=== PATIENT | male | born 1945 | race Caucasian/White ===

== ENCOUNTER → 2017-02-10 | Outpatient (CLI) | payer OTHER ==
[2014-07-19 11:20] VITALS: BP 125/65
== END ==
LOC: RAD 14:19
PROVIDERS: ATTEND Internal Medicine Cardiovascular Disease
DX: R06.02 Shortness of breath (principal)
CPT/HCPCS: 93306

== ENCOUNTER → 2017-04-28 | Outpatient (CLI) | payer OTHER ==
[2014-07-19 11:20] VITALS: BP 125/65
[2017-04-28 09:23] LABS: CREATININE 2.11 mg/dL (0.70-1.30)
--- NOTE | 2017-04-28 10:37 | CT ---
CT NECK WITHOUT IV CONTRAST CLINICAL INDICATION: Localize swelling. Neither location nor laterality indicated by ordering provid er. TECHNIQUE: Multiple-row detector helical CT examination of the neck per standard departmental bam col. Dose reduction techniques including Automated Exposure Control (AEC) and adjustment of mA and k V were utlized. COMPARISON: None. FINDINGS: It should be noted that evaluation of the neck for vascular and soft tissue lesions is extremely sub optimal in the absence of intravenous contrast. The aerodigestive structures are within normal limits. Specifically, the nasal cavity, nasopharynx, oral cavity, oropharynx, hypopharynx, larynx, and visualized trachea and esophagus demonstrate no m asses or abnormal enhancement. No pathologically enlarged, necrotic, or otherwise abnormal lymph nodes. Small subcutaneous lesion in the left cheek on series 3, image 9 may represent a sebaceous cyst. The parotid and submandibular glands appear within normal limits. The thyroid gland is normal in siz e without focal abnormality. Evaluation of the visualized portions of brain parenchyma and orbits demonstrates no abnormality. Th e visualized paranasal sinuses are predominantly clear. The tympanomastoid cavities are unopacified. Limited evaluation of the lung apices demonstrates no abnormality. The visualized osseous structures are within normal limits. IMPRESSION: 1. Small subcutaneous nodule in the left cheek. Correlate with physical examination. This may repres ent a sebaceous cyst. 2. Otherwise no evidence of abnormal mass or fluid collection on this significantly limited, noncont rast examination. Reported By:
== END ==
LOC: RAD 08:37
DX: R22.1 Localized swelling, mass and lump, neck (principal)
CPT/HCPCS: 36415; 70490; 82565; 84520

== ENCOUNTER 2017-10-21 20:09 | Inpatient (IN) | payer OTHER ==
--- NOTE | 2017-10-21 20:29 | DR.GENAD ---
HPI - PCP Primary Care Physician: Hatch - Complaint/Symptoms Chief Complaint Doctors Comments: Patient presented with complaint of chest pain for one day. He has taken NTG SL with relief pain past two days. The pain is right chest non radiating. He has a history of Bypass surgery. PMH - PMH Past Medical History: Hypertension, COPD Past Surgical History: Yes Surgical History: - Family History Family Medical History: Diabetes Mellitus, Cancer, Hypertension - Social History Do you use any recreational Drugs:: No ROS - Review of Systems Constitutional: Malaise Eyes: No Symptoms Reported ENTM: No Symptoms Reported Respiratoy: No Symptoms Reported Cardiovascular: No Symptoms Reported Gastrointestinal/Abdominal: No Symptoms Reported Genitourinary: No Symptoms Reported Neurological: No Symptoms Reported Musculoskeletal: No Symptoms Reported Integumentary: No Symptoms Reported Hematologic/Lymphatic: No Symptoms Reported Endocrine: No Symptoms Reported Psychiatric: No Symptoms Reported All Other Systems: Reviewed and Negative PE - Vital Signs Vitals: Temperature 98.6 F Pulse Rate 84 Respiratory Rate 28 Blood Pressure [Left Arm] 143/99 Blood Pressure 125/65 O2 Sat by Pulse Oximetry 84 - General Limitations: No Limitations General Appearance: Alert - Head Head Exam: Normal Inspection, Atraumatic - Eyes Eye exam: Normal Appearance, PERRL, EOMI - ENT ENT Exam: Normal Exam External Ear Exam: Normal External Inspection TM/Canal Exam: Bilateral Normal Nose Exam: Normal Nose Exam Mouth Exam: Normal Inspection Throat Exam: Normal Inspection - Neck Neck Exam: Normal Inspection, Full ROM - Chest Chest Inspection: Normal Inspection - Respiratory Respiratory Exam: Normal Lung Sounds Bilat Respiratory Exam: Bilateral Clear to Auscultation - Cardiovascular Cardiovascular Exam: Regular Rate - Abdominal Exam Abdominal Exam: Dimnished Bowel Sounds Abdominal Tenderness: negative: RUQ, RLQ, LUQ, LLQ, Epigastrium, Suprapubic, Diffuse, Mild, Moderate, Severe, Other - Extremities Extremities Exam: Edema (4+pitting according to family member), Joint Swelling - Back Back Exam: Normal Inspection - Neurologic Neurological Exam: Alert, Oriented X3, CN II-XII Intact - Psychiatric Psychiatric Exam: Normal Affect, Normal Mood - Skin Skin Exam: Warm, Dry, Intact Course - Reevaluation 1st: Unchanged - Consultation Called: 22:50 (Dr Galvan agreed to admit for further treatment) ROR - Labs Reviewed Result Diagrams: 10/21/17 20:45 10/21/17 20:45 Laboratory: WBC 10.7 X10^3/uL (3.6-10.0) H 10/21/17 20:45 RBC 3.53 X10^6/uL (4.7-6.0) L 10/21/17 20:45 Hgb 8.8 g/dL (13.5-18.0) L 10/21/17 20:45 Hct 28.1 % (42.0-54.0) L 10/21/17 20:45 MCV 79.6 fL (80.0-100.0) L 10/21/17 20:45 MCH 25.0 pg (27.0-34.0) L 10/21/17 20:45 MCHC 31.4 g/dL (33.0-35.0) L 10/21/17 20:45 RDW 19.0 % (11.6-16.5) H 10/21/17 20:45 Plt Count 222 X10^3/uL (150.0-450.0) 10/21/17 20:45 Plt Count Comment Adequate (ADEQUATE) 10/21/17 20:45 MPV 8.7 fL (7.4-11.0) 10/21/17 20:45 Neut % 76.3 % (42.0-75.0) H 10/21/17 20:45 Lymph % 11.0 % (21.0-51.0) L 10/21/17 20:45 [place] % 10.1 % (0.0-13.0) 10/21/17 20:45 Eos % 1.5 % (0.9-2.9) 10/21/17 20:45 Baso % 1.1 % (0.2-1.0) H 10/21/17 20:45 Neut # 8.2 x10^3/uL (2.2-4.8) H 10/21/17 20:45 Lymph # 1.2 X10^3/uL (1.3-2.9) L 10/21/17 20:45 [place] # 1.1 x10^3/uL (0.3-0.8) H 10/21/17 20:45 Eos # 0.2 x10^3/uL (0.0-0.2) 10/21/17 20:45 Baso # 0.1 X10^3/uL (0.0-0.1) 10/21/17 20:45 Absolute Nucleated RBC 0.1 /100WBC 10/21/17 20:45 Plt Morphology Comment Normal (NORMAL) 10/21/17 20:45 RBC Morphology Abnormal (NORMAL) 10/21/17 20:45 Anisocytosis Slight A 10/21/17 20:45 Microcytosis Slight A 10/21/17 20:45 INR Target Range - 10/21/17 20:45 INR 1.08 (0.8-1.3) 10/21/17 20:45 PTT 36.2 SECONDS (22.9-36.5) 10/21/17 20:45 PTT Comment - 10/21/17 20:45 Sodium 141 mmol/L (136-145) 10/21/17 20:45 Corrected Sodium 143 mmol/L (136-145) 10/21/17 20:45 Potassium 4.8 mmol/L (3.5-5.1) 10/21/17 20:45 Chloride 102 mmol/L (98-107) 10/21/17 20:45 Carbon Dioxide 31.0 mmol/L (21-32) 10/21/17 20:45 BUN 50 mg/dL (7-18) H 10/21/17 20:45 Creatinine 2.75 mg/dL (0.70-1.30) H 10/21/17 20:45 Est GFR (MDRD) Af Amer 29 (>60) L 10/21/17 20:45 Est GFR (MDRD) Non-Af 24 (>60) L 10/21/17 20:45 Glucose 172 mg/dL (65-99) H 10/21/17 20:45 Calcium 8.3 mg/dL (8.5-10.1) L 10/21/17 20:45 Corrected Calcium 8.9 mg/dL (8.5-10.1) 10/21/17 20:45 Magnesium 2.0 mg/dL (1.7-2.9) 10/21/17 20:45 Total Bilirubin 0.30 mg/dL (0.2-1.0) 10/21/17 20:45 AST 11 Units/L (15-37) L 10/21/17 20:45 ALT 14 Units/L (12-78) 10/21/17 20:45 Alkaline Phosphatase 97 Units/L (46-116) 10/21/17 20:45 Creatine Kinase 172 Units/L (39-308) 10/21/17 20:45 CK-MB (CK-2) 1.6 ng/mL (0-4.0) 10/21/17 20:45 CK/CKMB % Calc 0.9 % (<4) 10/21/17 20:45 Troponin I < 0.02 ng/mL (0-1.5) 10/21/17 20:45 B-Natriuretic Peptide 153 pg/mL (0-79) H 10/21/17 20:45 Total Protein 6.7 g/dL (6.4-8.2) 10/21/17 20:45 Albumin 3.2 g/dL (3.4-5.0) L 10/21/17 20:45 Globulin 3.5 g/dL (2.5-4.5) 10/21/17 20:45 Albumin/Globulin Ratio 0.9 Ratio (1.1-2.1) L 10/21/17 20:45 - XRAY XRAY Interpreted by: Radiologist (Chest: Cardiomegaly with prior CABG with pulmonary vascular congestion and suspected mild intersitial edema likely in the setting of CHF) - Diagnosis Discharge Problem: Prerenal azotemia, Pulmonary vascular congestion Chest pain Qualifiers: Chest pain type: unspecified Qualified Code(s): R07.9 - Chest pain, unspecified - Discharge Plan Condition: Stable - Follow ups/Referrals Follow ups/Referrals: ANA HATCH [Primary Care Provider] - 3 days - Instructions
[2017-10-21] MEDS ORDERED: NS 1000 ML 1,000 ML IV SCH (21:00)
[2017-10-21 21:03] LABS: BASOPHILS # (AUTO) 0.1 X10^3/uL (0.0-0.1); BASOPHILS % (AUTO) 1.1 % (0.2-1.0); EOSINOPHILS # (AUTO) 0.2 x10^3/uL (0.0-0.2); EOSINOPHILS % (AUTO) 1.5 % (0.9-2.9); HEMATOCRIT 28.1 % (42.0-54.0); HEMOGLOBIN 8.8 g/dL (13.5-18.0); LYMPHOCYTES # (AUTO) 1.2 X10^3/uL (1.3-2.9); MEAN CORPUSCULAR HGB CONC 31.4 g/dL (33.0-35.0); MEAN CORPUSCULAR VOLUME 79.6 fL (80.0-100.0); MEAN PLATELET VOLUME 8.7 fL (7.4-11.0); MONOCYTES # (AUTO) 1.1 x10^3/uL (0.3-0.8); MONOCYTES % (AUTO) 10.1 % (0.0-13.0); NEUTROPHILS # (AUTO) 8.2 x10^3/uL (2.2-4.8); NEUTROPHILS % (AUTO) 76.3 % (42.0-75.0); PLATELET COUNT 222 X10^3/uL (150.0-450.0); RED BLOOD COUNT 3.53 X10^6/uL (4.7-6.0); WHITE BLOOD COUNT 10.7 X10^3/uL (3.6-10.0)
[2017-10-21 21:17] LABS: BLOOD UREA NITROGEN 50 mg/dL (7-18); CALCIUM 8.3 mg/dL (8.5-10.1); CHLORIDE 102 mmol/L (98-107); COR NA(FOR HYPERGLY) 143 mmol/L (136-145); CREATININE 2.75 mg/dL (0.70-1.30); SODIUM 141 mmol/L (136-145); TROPONIN I < 0.02 ng/mL (0-1.5); eGFR BLACK RACES 29 (>60); eGFR NON BLACK RACES 24 (>60)
[2017-10-21 21:20] LABS: B-TYPE NATRIURETIC PEPTIDE 153 pg/mL (0-79)
[2017-10-21 21:21] LABS: ALANINE AMINOTRANSFERASE 14 Units/L (12-78); ALBUMIN 3.2 g/dL (3.4-5.0); ALKALINE PHOSPHATASE 97 Units/L (46-116); ASPARTATE AMINO TRANSFERASE 11 Units/L (15-37); CKMB % 0.9 % (<4); COR CA(FOR HYPOALB) 8.9 mg/dL (8.5-10.1); CREATINE KINASE 172 Units/L (39-308); CREATINE KINASE MB 1.6 ng/mL (0-4.0); TOTAL PROTEIN 6.7 g/dL (6.4-8.2)
[2017-10-21 21:24] LABS: ANISOCYTOSIS SLIGHT; MICROCYTOSIS SLIGHT; PLATELET MORPHOLOGY COMMENT NORMAL (NORMAL)
--- NOTE | 2017-10-21 21:39 | RAD ---
AP Chest Indication: Chest pain Comparison: 10/11/2012 Findings: The trachea is midline. The cardiac silhouette is enlarged. Interval CABG changes are noted. There i s chronic pulmonary vascular congestion however there is also increased interstitial opacities in catherine tral peribronchial thickening suspicious for superimposed pulmonary interstitial edema. Questionable small left-sided pleural effusion. No pneumothorax. No acute osseous abnormality. The bony thorax is unremarkable. IMPRESSION: 1. Cardiomegaly with prior CABG with pulmonary vascular congestion and suspected mild interstitial ed truong likely in the setting of CHF/volume overload. There is also likely a small left-sided pleural eff usion. Reported By:
[2017-10-22] MEDS: NS 1000 ML 1,000 ML IV SCH ×2 (00:24→10:31)
[2017-10-22 03:03] LABS: BILIRUBIN,URINE NEGATIVE (NEGATIVE); BLOOD/HEMOGLOBIN,URINE NEGATIVE (NEGATIVE); GLUCOSE, URINE NEGATIVE (NEGATIVE); KETONES,URINE NEGATIVE (NEGATIVE); LEUKOCYTE ESTERASE ,URINE NEGATIVE (NEGATIVE); NITRITES,URINE NEGATIVE (NEGATIVE); PROTEIN,URINE NEGATIVE (NEGATIVE); UROBILINOGEN,URINE NORMAL (NORMAL)
[2017-10-22 03:31] LABS: CKMB % 0.9 % (<4); CREATINE KINASE 195 Units/L (39-308); CREATINE KINASE MB 1.8 ng/mL (0-4.0); TROPONIN I < 0.02 ng/mL (0-1.5)
[2017-10-22 03:49] LABS: APPEARANCE,URINE CLEAR (CLEAR); BACTERIA,URINE NEGATIVE /HPF (NEGATIVE); COLOR,URINE YELLOW (YELLOW); RBC,URINE 0-3 /HPF (NEGATIVE); SQUAMOUS EPITHELIAL CELL,UR FEW /HPF (NEGATIVE)
[2017-10-22] MEDS ORDERED: COLACE CAP 100 MG PO SCH (04:00)
[2017-10-22 04:29] VITALS: BMI 45.3
[2017-10-22 06:38] LABS: BASOPHILS % (AUTO) 0.4 % (0.2-1.0); EOSINOPHILS # (AUTO) 0.2 x10^3/uL (0.0-0.2); EOSINOPHILS % (AUTO) 1.7 % (0.9-2.9); LYMPHOCYTES # (AUTO) 1.3 X10^3/uL (1.3-2.9); LYMPHOCYTES % (AUTO) 13.9 % (21.0-51.0); MEAN CORPUSCULAR HEMOGLOBIN 25.2 pg (27.0-34.0); MEAN CORPUSCULAR VOLUME 78.9 fL (80.0-100.0); MEAN PLATELET VOLUME 8.6 fL (7.4-11.0); MONOCYTES # (AUTO) 1.1 x10^3/uL (0.3-0.8); MONOCYTES % (AUTO) 11.6 % (0.0-13.0); NEUTROPHILS # (AUTO) 6.7 x10^3/uL (2.2-4.8); NEUTROPHILS % (AUTO) 72.4 % (42.0-75.0); PLATELET COUNT 190 X10^3/uL (150.0-450.0); RED BLOOD COUNT 3.17 X10^6/uL (4.7-6.0); RED CELL DISTRIBUTION WIDTH 18.7 % (11.6-16.5); WHITE BLOOD COUNT 9.3 X10^3/uL (3.6-10.0)
[2017-10-22 06:45] LABS: ALBUMIN 2.8 g/dL (3.4-5.0); CALCIUM 8.1 mg/dL (8.5-10.1); CARBON DIOXIDE 35.8 mmol/L (21-32); COR CA(FOR HYPOALB) 9.1 mg/dL (8.5-10.1); CREATININE 2.51 mg/dL (0.70-1.30); TOTAL PROTEIN 6.1 g/dL (6.4-8.2)
[2017-10-22 06:59] LABS: PLATELET MORPHOLOGY COMMENT NORMAL (NORMAL)
[2017-10-22 07:00] LABS: HYPOCHROMASIA SLIGHT; MICROCYTOSIS SLIGHT
--- NOTE | 2017-10-22 07:33 | RAD ---
Examination: Portable AP chest History: Chest pain Comparison 10/21/2017 Findings: Continued moderate cardiomegaly with findings of sternotomy. Mild central vascular congesti on. No definite pulmonary edema, large pneumothorax or localized consolidation. Impression: No significant change identified since 1 day earlier. Reported By:
[2017-10-22] MEDS ORDERED: MILK OF MAGNESIA PO SCH (09:00)
[2017-10-22 09:28] LABS: CKMB % 0.9 % (<4); CREATINE KINASE 177 Units/L (39-308); CREATINE KINASE MB 1.6 ng/mL (0-4.0); TROPONIN I < 0.02 ng/mL (0-1.5)
[2017-10-22] MEDS ORDERED: CLEOCIN 600 MG IV PREMIX 600 MG/50 ML BAG IV ONE (18:04)
[2017-10-22 18:21] VITALS: BP 138/86
== END 2017-10-22 18:15 | disposition short-term general hospital (02) | DRG 313 ==
LOC: ER 20:09 → MED/SURG 23:09
PROVIDERS: ADMIT Internal Medicine; ATTEND Obstetrics & Gynecology Obstetrics
DX: R07.89 Other chest pain (principal); R78.79 Finding of abnormal level of heavy metals in blood; L03.115 Cellulitis of right lower limb; I10 Essential (primary) hypertension; R94.31 Abnormal electrocardiogram [ECG] [EKG]; E11.65 Type 2 diabetes mellitus with hyperglycemia; I50.9 Heart failure, unspecified; N18.9 Chronic kidney disease, unspecified; I25.10 Atherosclerotic heart disease of native coronary artery without angina pectoris; W54.0XXA Bitten by dog, initial encounter; Y92.89 Other specified places as the place of occurrence of the external cause
CPT/HCPCS: 36415; 71045; 80053; 81001; 82550; 82553; 83735; 83880; 84484; 85025; 85610; 85730; 93005; 93010; 94760; 96365; 96367; 99284; A4216; A4222; J0077

== ENCOUNTER 2017-11-01 15:48 | Inpatient (IN) | payer OTHER ==
[2017-11-01] MEDS ORDERED: NS 1000 ML 1,000 ML IV ONE (16:08)
--- NOTE | 2017-11-01 16:27 | CT ---
CT of the abdomen and pelvis without contrast. Indication: Fall with abdominal pain Findings: Images of the lower chest demonstrate pleural-based nodular opacities within the left lower lobe. The remaining lungs are clear. The bones windows demonstrate multilevel discogenic degenerativ e disease without aggressive lesion. There is an infrarenal abdominal aortic aneurysm measuring 3.6 x 3.7 cm on image 45 of series 8. This is associated with mild atherosclerotic disease. The subcutaneo us tissues demonstrate an anterior right abdominal subcutaneous fat 6.8 cm hematoma. The right latera l abdominal wall is not visualized as it is touching the gantry. Abdomen: Given the limitations of a noncontrast study the liver, gallbladder, adrenal glands, spleen, pancreas and right kidney are unremarkable. There is atrophy of the left kidney. No hydronephrosis i s seen. There is mesenteric stranding. Pelvis: The prostate and urinary bladder are unremarkable. The bowel shows no abnormality except for scattered diverticuli. There is no free pelvic fluid or adenopathy. Conclusion: 1. Right anterior subcutaneous abdominal wall hematoma without intra-abdominal trauma. 2. Small infrarenal abdominal aortic aneurysm. 3. Left posterior lower lobe pleural-based nodules likely represents round atelectasis. Reported By:
[2017-11-01] MEDS ORDERED: NS 1000 ML 1,000 ML ONE (16:30)
[2017-11-01 16:31] LABS: BASOPHILS # (AUTO) 0.1 X10^3/uL (0.0-0.1); BASOPHILS % (AUTO) 1.2 % (0.2-1.0); EOSINOPHILS # (AUTO) 0.2 x10^3/uL (0.0-0.2); EOSINOPHILS % (AUTO) 2.4 % (0.9-2.9); HEMATOCRIT 26.5 % (42.0-54.0); HEMOGLOBIN 8.4 g/dL (13.5-18.0); LYMPHOCYTES # (AUTO) 1.3 X10^3/uL (1.3-2.9); LYMPHOCYTES % (AUTO) 14.1 % (21.0-51.0); MEAN CORPUSCULAR HGB CONC 31.7 g/dL (33.0-35.0); MEAN PLATELET VOLUME 8.6 fL (7.4-11.0); MONOCYTES # (AUTO) 0.9 x10^3/uL (0.3-0.8); MONOCYTES % (AUTO) 10.2 % (0.0-13.0); NEUTROPHILS # (AUTO) 6.7 x10^3/uL (2.2-4.8); NEUTROPHILS % (AUTO) 72.1 % (42.0-75.0); PLATELET COUNT 208 X10^3/uL (150.0-450.0); RED BLOOD COUNT 3.35 X10^6/uL (4.7-6.0); RED CELL DISTRIBUTION WIDTH 19.2 % (11.6-16.5); WHITE BLOOD COUNT 9.3 X10^3/uL (3.6-10.0)
--- NOTE | 2017-11-01 16:32 | DR.ABDMALE ---
HPI - Time seen Time seen: 16:00 - PCP Primary Care Physician: HATCH - Complaint Chief Complaint Doctors Comments: Patient fell while getting out of house sustained a 8cm superficial laceration of the RLQ of abdomen. He was discharged for [facility] on last week s/p treatment of pleural effusion of chest and abdomen. He sustained a laceration of the left lower extremity when he fell today. Chief Complaint:: 6-8 CM LACERATION TO LEFT LOWER LEG S/P FALL. PT. STATES HIS PORCH STEPS BROKE AND HE FELL ONTO THE DIRT. LARGE HEMATOMA AND ABRASION NOTED TO RIGHT SIDE OF ABDOMEN. - Source History provided by:: PT - Mode of arrival Mode of Arrival: EMS - Timing Onset of Chief Complaint: 11/01/17 PMH - PMH Past Medical History: Yes Past Medical History: CHF, COPD, Coronary Artery Disease, Diabetes, Hypertension Past Surgical History: Yes Surgical History: CABG/Valve Surgery, Other Past Surgical History Comment: HERNIA REPAIR - Family History History of Family Medical Conditions: Yes Family Medical History: Diabetes Mellitus, Cancer, Hypertension - Social History Does patient currently use any type of tobacco product: No Have you used tobacco products in the last 12 months: No Type of Tobacco Use: None Does any household member use tobacco: No Alcohol Use: None Do you use any recreational Drugs:: No Lives With: Spouse Lives Where: Home - infectious screening In the last 2 months have you had wt loss of >10#?: NO Have you had fever, night sweats or hemotysis?: No Have you traveled outside the country in the last 6 months?: No Isolation: Standard ROS - Review of Systems Constitutional: No Symptoms Reported Eyes: No Symptoms Reported ENTM: No Symptoms Reported Respiratoy: No Symptoms Reported Cardiovascular: No Symptoms Reported Gastrointestinal/Abdominal: No Symptoms Reported Genitourinary: No Symptoms Reported Neurological: No Symptoms Reported Musculoskeletal: No Symptoms Reported Integumentary: No Symptoms Reported Hematologic/Lymphatic: No Symptoms Reported Endocrine: No Symptoms Reported Psychiatric: No Symptoms Reported All Other Systems: Reviewed and Negative PE - Vital Signs Vital Signs: Temp Pulse Pulse Resp BP BP BP 11/01/17 18:45 79 20 142/63 11/01/17 18:15 80 20 92/55 11/01/17 18:00 76 20 116/57 11/01/17 17:30 79 21 117/55 02/06/18 17:00 74 20 124/61 02/06/18 16:45 74 20 106/58 11/01/17 16:30 77 20 93/51 11/01/17 16:23 78 20 95/55 11/01/17 15:51 97.6 F 88 20 93/54 10/22/17 16:00 138/86 138/86 10/11/12 12:00 143/99 Pulse Ox 11/01/17 18:45 100 11/01/17 18:15 100 11/01/17 18:00 100 11/01/17 17:30 97 11/01/17 17:00 100 11/01/17 16:45 100 11/01/17 16:30 98 11/01/17 16:23 100 11/01/17 15:51 96 10/22/17 16:00 10/11/12 12:00 - General Limitations: No Limitations General Appearance: Alert - Head Head Exam: Normal Inspection, Atraumatic - Eyes Eye exam: Normal Appearance, PERRL, EOMI - ENT ENT Exam: Normal Exam - Neck Neck Exam: Normal Inspection, Full ROM - Chest Chest Inspection: Normal Inspection - Respiratory Respiratory Exam: Normal Lung Sounds Bilat Respiratory Exam: Bilateral Clear to Auscultation - Cardiovascular Cardiovascular Exam: Regular Rate - Abdominal Exam Abdominal Exam: Normal Inspection Abdominal Tenderness: RLQ (a 8cm superficial abrasion with ecchymosis and protuberance at site.), Other - Rectal Rectal Exam: Deferred - Back Back Exam: Normal Inspection - Extremeties Extremities Exam: Other (A large laceration of the left lower extremity anteriorally (9x8cm)) - Exam: Male: Deferred - Neurologic Neurological Exam: Alert, Oriented X3, CN II-XII Intact - Psychiatric Psychiatric Exam: Normal Affect, Normal Mood - Skin Skin Exam: Warm, Dry, Intact, Other (A 6-8cm superficial laceration of RLQQ abdomen) Course - Reevaluation 1st: Improved - Consultation Called: 16:20 (Dr Barajas agreed to admit for further treatment and evaluation) ROR - Labs Reviewed Result Diagrams: 11/01/17 16:19 11/01/17 16:19 Laboratory: WBC 9.3 X10^3/uL (3.6-10.0) 11/01/17 16:19 RBC 3.35 X10^6/uL (4.7-6.0) L 11/01/17 16:19 Hgb 8.4 g/dL (13.5-18.0) L 11/01/17 16:19 Hct 26.5 % (42.0-54.0) L 11/01/17 16:19 MCV 79.0 fL (80.0-100.0) L 11/01/17 16:19 MCH 25.0 pg (27.0-34.0) L 11/01/17 16:19 MCHC 31.7 g/dL (33.0-35.0) L 11/01/17 16:19 RDW 19.2 % (11.6-16.5) H 11/01/17 16:19 Plt Count 208 X10^3/uL (150.0-450.0) 11/01/17 16:19 Plt Count Comment Adequate (ADEQUATE) 11/01/17 16:19 MPV 8.6 fL (7.4-11.0) 11/01/17 16:19 Neut % 72.1 % (42.0-75.0) 11/01/17 16:19 Lymph % 14.1 % (21.0-51.0) L 11/01/17 16:19 [place] % 10.2 % (0.0-13.0) 11/01/17 16:19 Eos % 2.4 % (0.9-2.9) 11/01/17 16:19 Baso % 1.2 % (0.2-1.0) H 11/01/17 16:19 Neut # 6.7 x10^3/uL (2.2-4.8) H 11/01/17 16:19 Lymph # 1.3 X10^3/uL (1.3-2.9) 11/01/17 16:19 [place] # 0.9 x10^3/uL (0.3-0.8) H 11/01/17 16:19 Eos # 0.2 x10^3/uL (0.0-0.2) 11/01/17 16:19 Baso # 0.1 X10^3/uL (0.0-0.1) 11/01/17 16:19 Absolute Nucleated RBC 0.0 /100WBC 11/01/17 16:19 Plt Morphology Comment Normal (NORMAL) 11/01/17 16:19 RBC Morphology Abnormal (NORMAL) 11/01/17 16:19 Hypochromasia Slight A 11/01/17 16:19 Anisocytosis Slight A 11/01/17 16:19 Microcytosis Slight A 11/01/17 16:19 INR Target Range - 11/01/17 16:19 INR 1.12 (0.8-1.3) 11/01/17 16:19 PTT 36.0 SECONDS (22.9-36.5) 11/01/17 16:19 PTT Comment - 11/01/17 16:19 Sodium 142 mmol/L (136-145) 11/01/17 16:19 Corrected Sodium 143 mmol/L (136-145) 11/01/17 16:19 Potassium 5.1 mmol/L (3.5-5.1) 11/01/17 16:19 Chloride 106 mmol/L (98-107) 11/01/17 16:19 Carbon Dioxide 34.0 mmol/L (21-32) H 11/01/17 16:19 BUN 36 mg/dL (7-18) H 11/01/17 16:19 Creatinine 2.33 mg/dL (0.70-1.30) H 11/01/17 16:19 Est GFR (MDRD) Af Amer 36 (>60) L 11/01/17 16:19 Est GFR (MDRD) Non-Af 29 (>60) L 11/01/17 16:19 Glucose 149 mg/dL (65-99) H 11/01/17 16:19 Calcium 7.9 mg/dL (8.5-10.1) L 11/01/17 16:19 Corrected Calcium 8.8 mg/dL (8.5-10.1) 11/01/17 16:19 Total Bilirubin 0.20 mg/dL (0.2-1.0) 11/01/17 16:19 AST 10 Units/L (15-37) L 11/01/17 16:19 ALT 14 Units/L (12-78) 11/01/17 16:19 Alkaline Phosphatase 90 Units/L (46-116) 11/01/17 16:19 Total Protein 6.0 g/dL (6.4-8.2) L 11/01/17 16:19 Albumin 2.9 g/dL (3.4-5.0) L 11/01/17 16:19 Globulin 3.1 g/dL (2.5-4.5) 11/01/17 16:19 Albumin/Globulin Ratio 0.9 Ratio (1.1-2.1) L 11/01/17 16:19 - XRAY XRAY Interpreted by: Radiologist (CT Abdom/pel w/o: Fingings: the lower chest demonstrate pleural based nodular opacities within the left lower lobe. The remaining lungs are clear. The bones windows demonstrate multilevel discogenic degenerative disease without aggressive lesion. There is an infrarenal abdominal aortic aneurysm measuring 3.6x3.7 cm. This is associated withmild atherosclerotic disease. The subcutaneous tissues demonstrate an anterior right abdominal subcutaneous fat 6.8cm hematoma. The right lateral abdominal wall is not visualized as it is touching the gantry. Abdomen: given the limitations of a noncontrast study the liver, gallbladder, adrenal glands,spleen ,pancreas and right kidney are unreamarkable. There is atrophy of the left kidney. No hydronephrosis is seen. There is mesenteric stranding. .Conclusion : Right anterior subcutaneous abdominal walll hematoma without intra abdominal trauma. Small infrarenal abdominal aortic aneurysm. Left posterior lower lobe pleural based nodules likely represents round atelectasis.) Procedures - Laceration/Wound Repair Left Leg Wound Length (cm): 8 Wound's Depth, Shape: Into muscle Wound Explored: clean Anesthesia: 1% Lidocaine w/ Epi (20) Wound Debrided: minimal Wound Repaired With: sutures Suture Size/Type: 3:0, Ethilion (16) - Diagnosis Discharge Problem: Abdominal hematoma Leg laceration Qualifiers: Encounter type: initial encounter Laterality: left Qualified Code(s): S81.812A - Laceration without foreign body, left lower leg, initial encounter - Discharge Plan Condition: Stable - Follow ups/Referrals Follow ups/Referrals: ANA HATCH [Primary Care Provider] - 3 days - Instructions
[2017-11-01 16:41] LABS: ALBUMIN 2.9 g/dL (3.4-5.0); CALCIUM 7.9 mg/dL (8.5-10.1); COR CA(FOR HYPOALB) 8.8 mg/dL (8.5-10.1); CREATININE 2.33 mg/dL (0.70-1.30)
[2017-11-01 16:47] LABS: ANISOCYTOSIS SLIGHT; HYPOCHROMASIA SLIGHT; MICROCYTOSIS SLIGHT; PLATELET MORPHOLOGY COMMENT NORMAL (NORMAL)
[2017-11-01] MEDS ORDERED: XYLOCAINE 1% and EPINEPHRINE 1:100,000 ONE ×2 (18:02→18:26)
[2017-11-01] MEDS ORDERED: BACITRACIN ZINC ONE (18:50)
[2017-11-01] MEDS ORDERED: ZOFRAN INJ 4 MG VIAL IVP PRN (19:08)
[2017-11-01] MEDS: NS 1000 ML 1,000 ML IV SCH (21:00)
[2017-11-02 06:19] LABS: BASOPHILS # (AUTO) 0.1 X10^3/uL (0.0-0.1); BASOPHILS % (AUTO) 0.7 % (0.2-1.0); EOSINOPHILS # (AUTO) 0.2 x10^3/uL (0.0-0.2); EOSINOPHILS % (AUTO) 2.1 % (0.9-2.9); HEMATOCRIT 24.2 % (42.0-54.0); HEMOGLOBIN 7.7 g/dL (13.5-18.0); LYMPHOCYTES # (AUTO) 1.1 X10^3/uL (1.3-2.9); LYMPHOCYTES % (AUTO) 13.3 % (21.0-51.0); MEAN CORPUSCULAR HEMOGLOBIN 25.1 pg (27.0-34.0); MEAN CORPUSCULAR HGB CONC 31.7 g/dL (33.0-35.0); MEAN PLATELET VOLUME 8.8 fL (7.4-11.0); MONOCYTES # (AUTO) 1.2 x10^3/uL (0.3-0.8); MONOCYTES % (AUTO) 14.1 % (0.0-13.0); NEUTROPHILS # (AUTO) 5.9 x10^3/uL (2.2-4.8); NEUTROPHILS % (AUTO) 69.8 % (42.0-75.0); PLATELET COUNT 178 X10^3/uL (150.0-450.0); RED BLOOD COUNT 3.06 X10^6/uL (4.7-6.0); RED CELL DISTRIBUTION WIDTH 19.3 % (11.6-16.5); WHITE BLOOD COUNT 8.4 X10^3/uL (3.6-10.0)
[2017-11-02 06:30] LABS: HYPOCHROMASIA 1+; PLATELET MORPHOLOGY COMMENT NORMAL (NORMAL)
[2017-11-02 06:34] LABS: ALBUMIN 2.5 g/dL (3.4-5.0); CALCIUM 7.7 mg/dL (8.5-10.1); CARBON DIOXIDE 32.3 mmol/L (21-32); COR CA(FOR HYPOALB) 8.9 mg/dL (8.5-10.1); CREATININE 1.93 mg/dL (0.70-1.30); TOTAL PROTEIN 5.4 g/dL (6.4-8.2)
--- NOTE | 2017-11-02 07:32 | RAD ---
History: Fall, pain Study: Portable chest Findings: AP upright chest labeled 6:45 a.m. shows the cardiac silhouette to be enlarged. Postop lorenzo ges of CABG are noted. The pulmonary vasculature is mildly congested. No focal consolidation is evident. No acute osseous ab normality is seen as visualized. Impression: Cardiomegaly with mild vascular congestion. No consolidation is seen. Reported By:
[2017-11-02] MEDS: NS 1000 ML 1,000 ML IV SCH (08:39)
[2017-11-02] MEDS ORDERED: NS 500 ML IV 500 ML IV ONE (08:44)
[2017-11-02] MEDS ORDERED: LASIX IVP ONE ×3 (08:46→17:02)
[2017-11-02] MEDS ORDERED: PATIENT'S HOME MEDICATION (Fluticasone-Salmeterol 250/50 1 PUFF) INH SCH (09:00)
[2017-11-02] MEDS: COREG TAB 6.25 MG PO SCH ×2 (10:00→20:58)
[2017-11-02] MEDS: LASIX PO SCH (10:00)
[2017-11-02] MEDS: NORCO 10/325 TAB PO PRN ×2 (10:45→21:07)
[2017-11-02] MEDS: LYRICA CAP 150 MG PO SCH ×2 (10:45→20:58)
[2017-11-02] MEDS: MICRO K EXTEN CAP 10 MEQ PO SCH ×2 (10:46→20:59)
[2017-11-02] MEDS ORDERED: BACITRACIN ZINC ONE (11:31)
[2017-11-02] MEDS ORDERED: PHARMACY CONSULT - DOSE _____ XX SCH (12:00)
--- NOTE | 2017-11-02 12:24 | PCM.PROG ---
Progress Note - Progress Note for Day of Date: 11/02/17 - Subjective Subjective: c/o abdominal pain around the abdominal wall abrasions and hematoma . no dizziness. No nause or vomiting ,. VS are stable . lab work showed Iron deficiency anemia. - Past Medical Family Social History Allergies: Allergies codeine Allergy (Verified 11/01/17 15:50) - Vital Signs and I&O's Vital Signs: Temperature 97.8 F Pulse Rate [Left Brachial] 88 Pulse Rate 88 Respiratory Rate 18 Blood Pressure [Right Arm] 128/59 Blood Pressure [Left Arm] 142/63 Blood Pressure 93/54 O2 Sat by Pulse Oximetry 97 Intake and Output: Intake & Output 10/31/17 11/01/17 11/02/17 11/03/17 11:59 11:59 11:59 11:59 Intake Total 340 Output Total 2175 Balance -1835 - Physical Exam Oriented: Normal Eyes: Normal Ear: Normal Nose: Normal Throat: Normal Respiratory: Normal Cardiovascular: Normal : Normal Auscultation: Bowel Sounds: Normal Palpation: Normal Tenderness: Periumbilical (generalized with abrasions and soft tissue hematoma) Musculoskeletal: Right (old dog bite withouit infectin but Pt has chronic venous stasis and chronic edema), Left (skin is somewhat dusky around the laceration , no infection .) Speech Pattern: Clear, Appropriate - Laboratory and Diagnostics Result Diagrams: 11/02/17 05:42 11/02/17 05:42 Labs: Laboratory WBC 8.4 X10^3/uL (3.6-10.0) 11/02/17 05:42 RBC 3.06 X10^6/uL (4.7-6.0) L 11/02/17 05:42 Hgb 7.7 g/dL (13.5-18.0) L 11/02/17 05:42 Hct 24.2 % (42.0-54.0) L 11/02/17 05:42 MCV 79.0 fL (80.0-100.0) L 11/02/17 05:42 MCH 25.1 pg (27.0-34.0) L 11/02/17 05:42 MCHC 31.7 g/dL (33.0-35.0) L 11/02/17 05:42 RDW 19.3 % (11.6-16.5) H 11/02/17 05:42 Plt Count 178 X10^3/uL (150.0-450.0) 11/02/17 05:42 Plt Count Comment Adequate (ADEQUATE) 11/02/17 05:42 MPV 8.8 fL (7.4-11.0) 11/02/17 05:42 Neut % 69.8 % (42.0-75.0) 11/02/17 05:42 Lymph % 13.3 % (21.0-51.0) L 11/02/17 05:42 [place] % 14.1 % (0.0-13.0) H 11/02/17 05:42 Eos % 2.1 % (0.9-2.9) 11/02/17 05:42 Baso % 0.7 % (0.2-1.0) 11/02/17 05:42 Neut # 5.9 x10^3/uL (2.2-4.8) H 11/02/17 05:42 Lymph # 1.1 X10^3/uL (1.3-2.9) L 11/02/17 05:42 [place] # 1.2 x10^3/uL (0.3-0.8) H 11/02/17 05:42 Eos # 0.2 x10^3/uL (0.0-0.2) 11/02/17 05:42 Baso # 0.1 X10^3/uL (0.0-0.1) 11/02/17 05:42 Absolute Nucleated RBC 0.0 /100WBC 11/02/17 05:42 Plt Morphology Comment Normal (NORMAL) 11/02/17 05:42 RBC Morphology Abnormal (NORMAL) 11/02/17 05:42 Hypochromasia 1+ A 11/02/17 05:42 Anisocytosis Slight A 11/01/17 16:19 Microcytosis Slight A 11/01/17 16:19 INR Target Range - 11/01/17 16:19 INR 1.12 (0.8-1.3) 11/01/17 16:19 PTT 36.0 SECONDS (22.9-36.5) 11/01/17 16:19 PTT Comment - 11/01/17 16:19 Sodium 144 mmol/L (136-145) 11/02/17 05:42 Corrected Sodium 145 mmol/L (136-145) 11/02/17 05:42 Potassium 4.8 mmol/L (3.5-5.1) 11/02/17 05:42 Chloride 110 mmol/L (98-107) H 11/02/17 05:42 Carbon Dioxide 32.3 mmol/L (21-32) H 11/02/17 05:42 BUN 29 mg/dL (7-18) H 11/02/17 05:42 Creatinine 1.93 mg/dL (0.70-1.30) H 11/02/17 05:42 Est GFR (MDRD) Af Amer 44 (>60) L 11/02/17 05:42 Est GFR (MDRD) Non-Af 37 (>60) L 11/02/17 05:42 Glucose 127 mg/dL (65-99) H 11/02/17 05:42 Calcium 7.7 mg/dL (8.5-10.1) L 11/02/17 05:42 Corrected Calcium 8.9 mg/dL (8.5-10.1) 11/02/17 05:42 Iron 23 ug/dL (50-175) L 11/02/17 05:42 Transferrin 227 mg/dL (202-364) 11/02/17 05:42 Ferritin 16 ng/mL (26-388) L 11/02/17 05:42 Total Bilirubin 0.20 mg/dL (0.2-1.0) 11/02/17 05:42 AST 10 Units/L (15-37) L 11/02/17 05:42 ALT 13 Units/L (12-78) 11/02/17 05:42 Alkaline Phosphatase 68 Units/L (46-116) 11/02/17 05:42 Total Protein 5.4 g/dL (6.4-8.2) L 11/02/17 05:42 Albumin 2.5 g/dL (3.4-5.0) L 11/02/17 05:42 Globulin 2.9 g/dL (2.5-4.5) 11/02/17 05:42 Albumin/Globulin Ratio 0.9 Ratio (1.1-2.1) L 11/02/17 05:42 Vitamin B12 344 pg/mL (193-986) 11/02/17 05:42 Folate 18.5 ng/mL (>8.6) 11/02/17 05:42 Blood Type O NEGATIVE 11/02/17 08:55 Antibody Screen Negative 11/02/17 08:55 Crossmatch See Detail 11/02/17 08:55 - Plan (1) Iron deficiency anemia Status: Acute Qualifiers: Iron deficiency anemia type: unspecified iron deficiency Qualified Code(s) : D50.9 - Iron deficiency anemia, unspecified Plan: out Pt GI endoscopy will be arranged (2) Leg laceration Status: Acute Qualifiers: Encounter type: initial encounter Laterality: left Qualified Code(s): S81.812A - Laceration without foreign body, left lower leg, initial encounter Plan: local care ,elevation and ATB (3) Chest pain Status: Acute Qualifiers: Chest pain type: unspecified Qualified Code(s): R07.9 - Chest pain, unspecified (4) Prerenal azotemia Status: Acute (5) Pulmonary vascular congestion Status: Acute
[2017-11-02] MEDS: BACITRACIN ZINC TOP SCH ×2 (13:00→22:00)
[2017-11-02] MEDS: DUONEB 0.5 MG/3 MG NEB SCH ×3 (13:45→21:40)
[2017-11-02] MEDS ORDERED: DEXFERRUM or INFED 25 MG in NS 100 ML IV 100 ML IV ONE (14:00)
[2017-11-02] MEDS ORDERED: DEXFERRUM or INFED 1,000 MG in NS 500 ML IV 500 ML IV ONE (15:00)
[2017-11-02] MEDS: CELEXA PO SCH (20:58)
[2017-11-02] MEDS: LIPITOR TAB 20 MG PO SCH (20:58)
[2017-11-02] MEDS: ZYLOPRIM PO SCH (21:01)
[2017-11-03] MEDS ORDERED: NS 500 ML IV 500 ML IV ONE (01:08)
[2017-11-03] MEDS: NS 1000 ML 1,000 ML IV SCH ×3 (05:57→11:32)
[2017-11-03] MEDS: BACITRACIN ZINC TOP SCH ×3 (05:58→21:07)
[2017-11-03 06:15] LABS: BASOPHILS # (AUTO) 0.1 X10^3/uL (0.0-0.1); BASOPHILS % (AUTO) 0.9 % (0.2-1.0); EOSINOPHILS # (AUTO) 0.2 x10^3/uL (0.0-0.2); EOSINOPHILS % (AUTO) 2.7 % (0.9-2.9); HEMATOCRIT 27.8 % (42.0-54.0); HEMOGLOBIN 8.9 g/dL (13.5-18.0); LYMPHOCYTES # (AUTO) 1.3 X10^3/uL (1.3-2.9); LYMPHOCYTES % (AUTO) 16.4 % (21.0-51.0); MEAN CORPUSCULAR HEMOGLOBIN 25.5 pg (27.0-34.0); MEAN CORPUSCULAR HGB CONC 31.9 g/dL (33.0-35.0); MEAN CORPUSCULAR VOLUME 79.8 fL (80.0-100.0); MEAN PLATELET VOLUME 8.6 fL (7.4-11.0); MONOCYTES # (AUTO) 1.3 x10^3/uL (0.3-0.8); MONOCYTES % (AUTO) 16.6 % (0.0-13.0); NEUTROPHILS # (AUTO) 5.1 x10^3/uL (2.2-4.8); NEUTROPHILS % (AUTO) 63.4 % (42.0-75.0); PLATELET COUNT 170 X10^3/uL (150.0-450.0); RED BLOOD COUNT 3.49 X10^6/uL (4.7-6.0); RED CELL DISTRIBUTION WIDTH 18.5 % (11.6-16.5); WHITE BLOOD COUNT 8.1 X10^3/uL (3.6-10.0)
[2017-11-03 06:45] LABS: HYPOCHROMASIA SLIGHT; PLATELET MORPHOLOGY COMMENT NORMAL (NORMAL)
[2017-11-03 06:48] LABS: ALBUMIN 2.5 g/dL (3.4-5.0); CALCIUM 8.1 mg/dL (8.5-10.1); COR CA(FOR HYPOALB) 9.3 mg/dL (8.5-10.1); CREATININE 1.77 mg/dL (0.70-1.30); TOTAL PROTEIN 5.7 g/dL (6.4-8.2)
[2017-11-03] MEDS: DUONEB 0.5 MG/3 MG NEB SCH ×4 (09:03→20:30)
[2017-11-03] MEDS: LASIX PO SCH (09:55)
[2017-11-03] MEDS: COREG TAB 6.25 MG PO SCH ×2 (09:56→21:06)
[2017-11-03] MEDS: LYRICA CAP 150 MG PO SCH ×2 (09:56→21:06)
[2017-11-03] MEDS: MICRO K EXTEN CAP 10 MEQ PO SCH ×2 (09:56→21:06)
[2017-11-03] MEDS: NORCO 10/325 TAB PO PRN ×2 (11:35→22:12)
[2017-11-03] MEDS ORDERED: NS 1/2 1000 ML IV 1,000 ML IV ONE (16:52)
[2017-11-03] MEDS: NS 1/2 1000 ML IV 1,000 ML IV SCH (17:14)
[2017-11-03] MEDS: CELEXA PO SCH (21:06)
[2017-11-03] MEDS: LIPITOR TAB 20 MG PO SCH (21:06)
[2017-11-03] MEDS: ZYLOPRIM PO SCH (21:07)
[2017-11-04] MEDS: NYSTATIN POWDER TOP SCH ×3 (01:40→22:04)
[2017-11-04] MEDS: BACITRACIN ZINC TOP SCH ×3 (06:10→22:04)
[2017-11-04 06:27] LABS: BASOPHILS # (AUTO) 0.1 X10^3/uL (0.0-0.1); BASOPHILS % (AUTO) 0.5 % (0.2-1.0); EOSINOPHILS # (AUTO) 0.3 x10^3/uL (0.0-0.2); EOSINOPHILS % (AUTO) 2.6 % (0.9-2.9); HEMATOCRIT 32.2 % (42.0-54.0); HEMOGLOBIN 10.2 g/dL (13.5-18.0); LYMPHOCYTES # (AUTO) 1.2 X10^3/uL (1.3-2.9); LYMPHOCYTES % (AUTO) 9.5 % (21.0-51.0); MEAN CORPUSCULAR HEMOGLOBIN 25.3 pg (27.0-34.0); MEAN CORPUSCULAR HGB CONC 31.6 g/dL (33.0-35.0); MEAN CORPUSCULAR VOLUME 79.9 fL (80.0-100.0); MEAN PLATELET VOLUME 8.9 fL (7.4-11.0); MONOCYTES # (AUTO) 1.8 x10^3/uL (0.3-0.8); MONOCYTES % (AUTO) 14.2 % (0.0-13.0); NEUTROPHILS % (AUTO) 73.2 % (42.0-75.0); PLATELET COUNT 205 X10^3/uL (150.0-450.0); RED BLOOD COUNT 4.03 X10^6/uL (4.7-6.0); RED CELL DISTRIBUTION WIDTH 18.7 % (11.6-16.5); WHITE BLOOD COUNT 12.3 X10^3/uL (3.6-10.0)
[2017-11-04 06:34] LABS: CALCIUM 8.8 mg/dL (8.5-10.1); CARBON DIOXIDE 34.9 mmol/L (21-32); COR CA(FOR HYPOALB) 9.6 mg/dL (8.5-10.1); CREATININE 1.8 mg/dL (0.70-1.30); TOTAL PROTEIN 6.5 g/dL (6.4-8.2)
[2017-11-04 06:48] LABS: ANISOCYTOSIS SLIGHT; HYPOCHROMASIA SLIGHT; PLATELET MORPHOLOGY COMMENT NORMAL (NORMAL)
[2017-11-04] MEDS: DUONEB 0.5 MG/3 MG NEB SCH ×4 (08:05→20:34)
[2017-11-04] MEDS: COREG TAB 6.25 MG PO SCH ×2 (08:39→20:48)
[2017-11-04] MEDS: MICRO K EXTEN CAP 10 MEQ PO SCH ×2 (08:39→20:47)
[2017-11-04] MEDS: LASIX PO SCH (08:40)
[2017-11-04] MEDS: LYRICA CAP 150 MG PO SCH ×2 (08:40→20:48)
[2017-11-04 10:07] LABS: ABG BASE EXCESS 13.3 mmol/L (-2.0-2.0)
[2017-11-04] MEDS: ZOSYN VIAL 3.375 GM 3.375 GM in NS 100 ML IV + SPIKE MINIBAG* 100 ML IV SCH ×3 (10:07→22:04)
[2017-11-04 10:08] LABS: ABG ALLEN TEST POS; ABG HCO3 41.2 mmol/L (22-26)
[2017-11-04] MEDS: MILK OF MAGNESIA PO SCH ×4 (10:08→20:40)
[2017-11-04] MEDS: MIRALAX POWDER (1 DOSE 17GM) PO SCH (10:08)
[2017-11-04] MEDS: COLACE CAP 100 MG PO SCH ×2 (10:08→20:43)
[2017-11-04] MEDS: SOLU-Medrol 40 MG VIAL IVP SCH ×2 (13:45→20:44)
[2017-11-04] MEDS: VALIUM PO PRN ×2 (13:46→20:38)
--- NOTE | 2017-11-04 15:58 | US ---
HISTORY: Abdominal pain and distention. Study: Right upper quadrant abdominal ultrasound Comparison: None. Technique: Multiple cuadra scale and color flow Doppler images of the right upper quadrant were obtaine d. Findings: The liver is enlarged measuring 20 cm, with increased echotexture. The visible portions of the liver are otherwise grossly unremarkable. There are several small gallstones and intraluminal gallbladder s ludge seen in the gallbladder without sonographic evidence for acute cholecystitis. The common bile duct is grossly unremarkable. No pericholecystic fluid or gallbladder wall thickening can be observe d. The CBD measures within normal limits. The right kidney appears normal in size without focal paren chymal mass or nephrolithiasis. The right kidney measurers within normal limits. No hydronephrosis or perirenal fluid can be observed. The pancreas is largely obscured by overlying bowel gas. No asci doug is identified. IMPRESSION: 1. Liver appears enlarged and slightly echogenic without additional gross abnormalities observed. Ga llstones with intraluminal gallbladder sludge. Please correlate for gallbladder disease. Nuclear medi cine HIDA imaging follow-up could be considered for assurance. Of note, the patient discontinued this examination, rendering it somewhat incomplete. Reported By:
[2017-11-04] MEDS: NS 1/2 1000 ML IV 1,000 ML IV SCH ×2 (16:27→17:39)
[2017-11-04] MEDS ORDERED: NS 1/2 1000 ML IV 1,000 ML IV ONE (17:23)
[2017-11-04] MEDS: HumuLIN R SUBCUT PRN ×2 (17:40→21:54)
[2017-11-04] MEDS: SNACK - Diabetic Appropriate PO SCH (20:00)
[2017-11-04] MEDS: NORCO 10/325 TAB PO PRN (20:38)
[2017-11-04] MEDS: CELEXA PO SCH (20:43)
[2017-11-04] MEDS: LIPITOR TAB 20 MG PO SCH (20:44)
[2017-11-04] MEDS: ZYLOPRIM PO SCH (20:48)
[2017-11-05 06:31] LABS: BASOPHILS % (AUTO) 0.2 % (0.2-1.0); HEMATOCRIT 29.9 % (42.0-54.0); HEMOGLOBIN 9.5 g/dL (13.5-18.0); LYMPHOCYTES # (AUTO) 0.8 X10^3/uL (1.3-2.9); LYMPHOCYTES % (AUTO) 6.2 % (21.0-51.0); MEAN CORPUSCULAR HEMOGLOBIN 25.2 pg (27.0-34.0); MEAN CORPUSCULAR HGB CONC 31.8 g/dL (33.0-35.0); MEAN CORPUSCULAR VOLUME 79.3 fL (80.0-100.0); MEAN PLATELET VOLUME 8.5 fL (7.4-11.0); MONOCYTES # (AUTO) 0.3 x10^3/uL (0.3-0.8); MONOCYTES % (AUTO) 2.3 % (0.0-13.0); NEUTROPHILS # (AUTO) 11.2 x10^3/uL (2.2-4.8); NEUTROPHILS % (AUTO) 91.3 % (42.0-75.0); PLATELET COUNT 224 X10^3/uL (150.0-450.0); RED BLOOD COUNT 3.77 X10^6/uL (4.7-6.0); RED CELL DISTRIBUTION WIDTH 18.3 % (11.6-16.5); WHITE BLOOD COUNT 12.3 X10^3/uL (3.6-10.0)
[2017-11-05] MEDS: BACITRACIN ZINC TOP SCH ×3 (06:36→22:21)
[2017-11-05] MEDS: ZOSYN VIAL 3.375 GM 3.375 GM in NS 100 ML IV + SPIKE MINIBAG* 100 ML IV SCH ×3 (06:37→22:17)
[2017-11-05] MEDS: HumuLIN R SUBCUT PRN ×4 (06:42→22:22)
[2017-11-05 06:43] LABS: BAND NEUTROPHILS % 2 % (0-10); PLATELET MORPHOLOGY COMMENT NORMAL (NORMAL)
[2017-11-05 06:45] LABS: ALBUMIN 2.7 g/dL (3.4-5.0); CALCIUM 8.7 mg/dL (8.5-10.1); CARBON DIOXIDE 38.8 mmol/L (21-32); COR CA(FOR HYPOALB) 9.7 mg/dL (8.5-10.1); CREATININE 1.87 mg/dL (0.70-1.30); TOTAL PROTEIN 6.5 g/dL (6.4-8.2)
[2017-11-05 08:33] VITALS: BMI 44.9
[2017-11-05] MEDS: DUONEB 0.5 MG/3 MG NEB SCH ×4 (08:39→20:49)
[2017-11-05] MEDS: MILK OF MAGNESIA PO SCH ×4 (08:39→22:20)
[2017-11-05] MEDS: SOLU-Medrol 40 MG VIAL IVP SCH ×2 (08:39→22:17)
[2017-11-05] MEDS: LYRICA CAP 150 MG PO SCH ×2 (08:40→22:18)
[2017-11-05] MEDS: COREG TAB 6.25 MG PO SCH ×2 (08:40→22:19)
[2017-11-05] MEDS: LASIX PO SCH (08:40)
[2017-11-05] MEDS: MIRALAX POWDER (1 DOSE 17GM) PO SCH (08:40)
[2017-11-05] MEDS: NYSTATIN POWDER TOP SCH ×2 (08:40→22:21)
[2017-11-05] MEDS: COLACE CAP 100 MG PO SCH ×2 (08:40→22:19)
[2017-11-05] MEDS: MICRO K EXTEN CAP 10 MEQ PO SCH ×2 (08:40→22:18)
[2017-11-05] MEDS: CELEXA PO SCH (22:19)
[2017-11-05] MEDS: LIPITOR TAB 20 MG PO SCH (22:19)
[2017-11-05] MEDS: ZYLOPRIM PO SCH (22:19)
[2017-11-05] MEDS: SNACK - Diabetic Appropriate PO SCH (22:20)
[2017-11-06] MEDS: VALIUM PO PRN ×2 (01:15→21:14)
[2017-11-06] MEDS: NORCO 10/325 TAB PO PRN ×2 (01:15→21:13)
[2017-11-06] MEDS: ZOSYN VIAL 3.375 GM 3.375 GM in NS 100 ML IV + SPIKE MINIBAG* 100 ML IV SCH ×3 (05:39→21:12)
[2017-11-06] MEDS: BACITRACIN ZINC TOP SCH ×4 (05:41→21:18)
[2017-11-06] MEDS: HumuLIN R SUBCUT PRN ×4 (05:42→21:16)
[2017-11-06 06:22] LABS: BASOPHILS % (AUTO) 0.2 % (0.2-1.0); HEMATOCRIT 29.5 % (42.0-54.0); HEMOGLOBIN 9.4 g/dL (13.5-18.0); LYMPHOCYTES # (AUTO) 0.8 X10^3/uL (1.3-2.9); LYMPHOCYTES % (AUTO) 4.4 % (21.0-51.0); MEAN CORPUSCULAR HEMOGLOBIN 25.4 pg (27.0-34.0); MEAN CORPUSCULAR HGB CONC 31.7 g/dL (33.0-35.0); MEAN CORPUSCULAR VOLUME 80.2 fL (80.0-100.0); MEAN PLATELET VOLUME 8.9 fL (7.4-11.0); MONOCYTES # (AUTO) 0.9 x10^3/uL (0.3-0.8); NEUTROPHILS # (AUTO) 16.3 x10^3/uL (2.2-4.8); NEUTROPHILS % (AUTO) 90.4 % (42.0-75.0); PLATELET COUNT 238 X10^3/uL (150.0-450.0); RED BLOOD COUNT 3.68 X10^6/uL (4.7-6.0); RED CELL DISTRIBUTION WIDTH 18.5 % (11.6-16.5); WHITE BLOOD COUNT 18.1 X10^3/uL (3.6-10.0)
[2017-11-06 06:44] LABS: PLATELET MORPHOLOGY COMMENT NORMAL (NORMAL)
[2017-11-06 06:46] LABS: ALBUMIN 2.6 g/dL (3.4-5.0); CALCIUM 8.4 mg/dL (8.5-10.1); CARBON DIOXIDE 38.5 mmol/L (21-32); COR CA(FOR HYPOALB) 9.5 mg/dL (8.5-10.1); CREATININE 1.73 mg/dL (0.70-1.30); TOTAL PROTEIN 6.1 g/dL (6.4-8.2)
[2017-11-06] MEDS: LASIX PO SCH (08:25)
[2017-11-06] MEDS: COREG TAB 6.25 MG PO SCH ×2 (08:25→21:15)
[2017-11-06] MEDS: LYRICA CAP 150 MG PO SCH ×2 (08:25→21:15)
[2017-11-06] MEDS: SOLU-Medrol 40 MG VIAL IVP SCH ×2 (08:25→21:16)
[2017-11-06] MEDS: COLACE CAP 100 MG PO SCH ×2 (08:25→21:15)
[2017-11-06] MEDS: MILK OF MAGNESIA PO SCH ×4 (08:30→21:16)
[2017-11-06] MEDS: MIRALAX POWDER (1 DOSE 17GM) PO SCH (08:30)
[2017-11-06] MEDS: MICRO K EXTEN CAP 10 MEQ PO SCH ×2 (08:31→21:18)
[2017-11-06] MEDS: NYSTATIN POWDER TOP SCH ×2 (08:31→21:17)
[2017-11-06] MEDS: DUONEB 0.5 MG/3 MG NEB SCH ×4 (08:46→20:42)
[2017-11-06] MEDS: ZYLOPRIM PO SCH (21:12)
[2017-11-06] MEDS: LIPITOR TAB 20 MG PO SCH (21:13)
[2017-11-06] MEDS: CELEXA PO SCH (21:15)
[2017-11-06] MEDS: SNACK - Diabetic Appropriate PO SCH (21:19)
[2017-11-07] MEDS ORDERED: NS 1/2 1000 ML IV 0 ML IV ONE (01:38)
[2017-11-07] MEDS: NS 1/2 1000 ML IV 1,000 ML IV SCH (01:49)
[2017-11-07] MEDS: ZOSYN VIAL 3.375 GM 3.375 GM in NS 100 ML IV + SPIKE MINIBAG* 100 ML IV SCH (05:29)
[2017-11-07] MEDS: HumuLIN R SUBCUT PRN (05:29)
[2017-11-07] MEDS: BACITRACIN ZINC TOP SCH (05:30)
[2017-11-07 06:22] LABS: BASOPHILS % (AUTO) 0.2 % (0.2-1.0); HEMATOCRIT 29.4 % (42.0-54.0); HEMOGLOBIN 9.4 g/dL (13.5-18.0); LYMPHOCYTES # (AUTO) 0.7 X10^3/uL (1.3-2.9); LYMPHOCYTES % (AUTO) 5.1 % (21.0-51.0); MEAN CORPUSCULAR HEMOGLOBIN 25.8 pg (27.0-34.0); MEAN CORPUSCULAR VOLUME 80.7 fL (80.0-100.0); MEAN PLATELET VOLUME 8.7 fL (7.4-11.0); MONOCYTES # (AUTO) 0.7 x10^3/uL (0.3-0.8); MONOCYTES % (AUTO) 4.9 % (0.0-13.0); NEUTROPHILS # (AUTO) 12.3 x10^3/uL (2.2-4.8); NEUTROPHILS % (AUTO) 89.8 % (42.0-75.0); PLATELET COUNT 244 X10^3/uL (150.0-450.0); RED BLOOD COUNT 3.65 X10^6/uL (4.7-6.0); WHITE BLOOD COUNT 13.7 X10^3/uL (3.6-10.0)
[2017-11-07 06:37] LABS: ALBUMIN 2.5 g/dL (3.4-5.0); CALCIUM 8.5 mg/dL (8.5-10.1); CARBON DIOXIDE 39.3 mmol/L (21-32); COR CA(FOR HYPOALB) 9.7 mg/dL (8.5-10.1); CREATININE 1.95 mg/dL (0.70-1.30); TOTAL PROTEIN 5.9 g/dL (6.4-8.2)
[2017-11-07 06:55] LABS: PLATELET MORPHOLOGY COMMENT NORMAL (NORMAL)
[2017-11-07] MEDS: DUONEB 0.5 MG/3 MG NEB SCH ×2 (08:45→12:04)
[2017-11-07] MEDS ORDERED: BUTT CREAM (COMPOUND) TOP PRN (09:01)
[2017-11-07] MEDS: LASIX PO SCH (11:01)
[2017-11-07] MEDS: LYRICA CAP 150 MG PO SCH (11:02)
[2017-11-07] MEDS: COREG TAB 6.25 MG PO SCH (11:02)
[2017-11-07] MEDS ORDERED: NS 1/2 1000 ML IV 1,000 ML IV ONE (11:23)
[2017-11-07] MEDS: MIRALAX POWDER (1 DOSE 17GM) PO SCH (13:48)
[2017-11-07] MEDS: MILK OF MAGNESIA PO SCH (13:48)
[2017-11-07] MEDS: COLACE CAP 100 MG PO SCH (13:48)
[2017-11-07 16:09] VITALS: BP 126/64
== END 2017-11-07 14:05 | disposition home health service (06) | DRG 605 ==
LOC: ER 15:48 → OBS 19:04 → MED/SURG 11-02 19:46 → OBSVTOIN 11-03 08:30
PROVIDERS: ADMIT Internal Medicine; ATTEND Obstetrics & Gynecology Obstetrics
PROC: 30233N1 Transfusion of Nonautologous Red Blood Cells into Peripheral Vein, Percutaneous Approach (ICD-10-PCS; 2017-11-02)
PROC: 30233N1 Transfusion of Nonautologous Red Blood Cells into Peripheral Vein, Percutaneous Approach (ICD-10-PCS; 2017-11-02)
PROC: 0HQLXZZ Repair Left Lower Leg Skin, External Approach (ICD-10-PCS; principal; 2017-11-03)
DX: S81.812A Laceration without foreign body, left lower leg, initial encounter (principal); S30.1XXA Contusion of abdominal wall, initial encounter; I25.10 Atherosclerotic heart disease of native coronary artery without angina pectoris; E11.65 Type 2 diabetes mellitus with hyperglycemia; I10 Essential (primary) hypertension; I71.4 Abdominal aortic aneurysm, without rupture; I95.89 Other hypotension; D64.89 Other specified anemias; W17.89XA Other fall from one level to another, initial encounter; Y92.098 Other place in other non-institutional residence as the place of occurrence of the external cause; D50.8 Other iron deficiency anemias; R07.89 Other chest pain; R79.89 Other specified abnormal findings of blood chemistry; R09.89 Other specified symptoms and signs involving the circulatory and respiratory systems; I50.9 Heart failure, unspecified; R26.89 Other abnormalities of gait and mobility
CPT/HCPCS: 12004; 36415; 36430; 36600; 71045; 74176; 76705; 80053; 82140; 82270; 82378; 82607; 82728; 82746; 82803; 83540; 83550; 84466; 85025; 85610; 85730; 86850; 86900; 86901; 86922; 94640; 94660; 94760; 96365; 99284; A4216; A4222; A4618; A7030; P9016; G0378; J1750; J1815; J1940; J2001; J2543; J2920; J7620

== ENCOUNTER 2018-10-22 11:08 | Inpatient (IN) ==
[2018-10-22] MEDS ORDERED: DECADRON JET NEB (RESP USE) NEB ONE (11:25)
[2018-10-22] MEDS ORDERED: DUONEB 0.5 MG/3 MG NEB ONE (11:25)
[2018-10-22] MEDS ORDERED: DUONEB 0.5 MG/3 MG ONE (11:25)
[2018-10-22] MEDS ORDERED: DECADRON INJ ONE (11:32)
--- NOTE | 2018-10-22 11:33 | DR.GENAD ---
HPI Time Seen Time Seen by Provider: 10/22/18 11:22 PCP Primary Care Physician: DR HATCH Complaint/Symptoms Chief Complaint Doctors Comments: Patient presents to the ED with complaint of dyspnea for two days. He has a history of COPD. Home oxygen 3L continuously. There is no history of fever,vomiting. Chief Complaint:: PT STATES THAT HE HAS BEEN FEELING VERY SHORT OF BREATH FOR PAST TWO DAYS. 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 Family History History of Family Medical Conditions: Yes Family Medical History: Diabetes Mellitus, Cancer and Hypertension Social History Does patient currently use any type of tobacco product: No Have you used tobacco products in the last 12 months: No Type of Tobacco Use: None Does any household member use tobacco: No Alcohol Use: None Do you use any recreational Drugs:: No Lives With: Alone Lives Where: Home infectious screening In the last 2 months have you had wt loss of >10#?: NO Have you had fever, night sweats or hemotysis?: No Have you traveled outside the country in the last 6 months?: No Isolation: Standard PE Vital Signs Vitals: Temperature 98.1 F Pulse Rate [Apical] 66 Pulse Rate 77 Respiratory Rate 25 Blood Pressure [Right Arm] 122/58 Blood Pressure [Left Arm] 114/56 Blood Pressure 120/57 O2 Sat by Pulse Oximetry 95 General General Appearance: Alert and Lethargic Head Head Exam: Normal Inspection, Atraumatic and Normocephalic Eyes Eye exam: Normal Appearance, PERRL and EOMI ENT ENT Exam: Normal Exam, Normal Oropharynx and Normal External Ear Exam External Ear Exam: Normal External Inspection TM/Canal Exam: Bilateral: Normal Nose Exam: Normal Nose Exam and Sinus Tenderness Mouth Exam: Normal Inspection Throat Exam: Normal Inspection Neck Neck Exam: Normal Inspection and Full ROM Chest Chest Inspection: Normal Inspection and Symmetric Chest Wall Rise Respiratory Respiratory Exam: Prolonged Expiratory Phase (with expiratory wheeze) Respiratory Exam: Bilateral: Wheezing (expiratory) Cardiovascular Cardiovascular Exam: Regular Rate and Normal Rhythm Abdominal Exam Abdominal Exam: Normal Inspection and Normal Bowel Sounds Abdominal Tenderness: RUQ Back Back Exam: Normal Inspection and Full ROM Neurologic Neurological Exam: Alert, Oriented X3 and CN II-XII Intact Psychiatric Psychiatric Exam: Normal Affect and Normal Mood Skin Skin Exam: Warm, Dry and Intact COURSE Treatment Treatment: NS, Oxygen,Bipap,ABG Consultation Called: 14:15 Consultation Comments: Dr. Galvan agreed to admit for further evaluation and treatment ROR Labs Reviewed Laboratory Results Reviewed?: Yes Result Diagrams: 10/22/18 11:40 10/22/18 11:40 Laboratory: 10/22/18 17:25 Sputum - Expectorated Sputum - Final WBC 18.9 X10^3/uL (3.6-10.0) H 10/22/18 11:40 RBC 3.80 X10^6/uL (4.7-6.0) L 10/22/18 11:40 Hgb 9.5 g/dL (13.5-18.0) L 10/22/18 11:40 Hct 31.0 % (42.0-54.0) L 10/22/18 11:40 MCV 81.7 fL (80.0-100.0) 10/22/18 11:40 MCH 25.1 pg (27.0-34.0) L 10/22/18 11:40 MCHC 30.8 g/dL (33.0-35.0) L 10/22/18 11:40 RDW 19.2 % (11.6-16.5) H 10/22/18 11:40 Plt Count 245 X10^3/uL (150.0-450.0) 10/22/18 11:40 Plt Count Comment Adequate (ADEQUATE) 10/22/18 11:40 MPV 8.0 fL (7.4-11.0) 10/22/18 11:40 Neut % (Auto) 83.3 % (42.0-75.0) H 10/22/18 11:40 Lymph % (Auto) 5.8 % (21.0-51.0) L 10/22/18 11:40 Mower % (Auto) 9.0 % (0.0-13.0) 10/22/18 11:40 Eos % (Auto) 1.5 % (0.9-2.9) 10/22/18 11:40 Baso % (Auto) 0.4 % (0.2-1.0) 10/22/18 11:40 Neut # (Auto) 15.7 x10^3/uL (2.2-4.8) H 10/22/18 11:40 Lymph # (Auto) 1.1 X10^3/uL (1.3-2.9) L 10/22/18 11:40 [place] # (Auto) 1.7 x10^3/uL (0.3-0.8) H 10/22/18 11:40 Eos # (Auto) 0.3 x10^3/uL (0.0-0.2) H 10/22/18 11:40 Baso # (Auto) 0.1 X10^3/uL (0.0-0.1) 10/22/18 11:40 Absolute Nucleated RBC 0.0 /100WBC 10/22/18 11:40 Plt Morphology Comment Normal (NORMAL) 10/22/18 11:40 RBC Morphology Abnormal (NORMAL) 10/22/18 11:40 Hypochromasia Slight A 10/22/18 11:40 D-Dimer 681 ng/mL (0-400) H* 10/22/18 11:40 Sample Site Right radial 10/22/18 15:23 ABG pH 7.320 (7.35-7.45) L 10/22/18 15:23 ABG pCO2 84.0 mmHg (35.0-45.0) H* 10/22/18 15:23 ABG pO2 68.0 mmHg (80.0-100.0) L 10/22/18 15:23 ABG HCO3 43.3 mmol/L (22-26) H* 10/22/18 15:23 ABG O2 Saturation 92.0 % (90-100) 10/22/18 15:23 ABG Base Excess 13.6 mmol/L (-2.0-2.0) H 10/22/18 15:23 Herson Test Pos 10/22/18 15:23 A-a Gradient 255.0 mmHg 10/22/18 15:23 FiO2 60.0 10/22/18 15:23 Blood Gas Comments Jeremiah well aw 10/22/18 15:23 Sodium 143 mmol/L (136-145) 10/22/18 11:40 Corrected Sodium 146 mmol/L (136-145) H 10/22/18 11:40 Potassium 4.0 mmol/L (3.5-5.1) 10/22/18 11:40 Chloride 100 mmol/L (98-107) 10/22/18 11:40 Carbon Dioxide 37.2 mmol/L (21-32) H 10/22/18 11:40 BUN 26 mg/dL (7-18) H 10/22/18 11:40 Creatinine 2.06 mg/dL (0.70-1.30) H 10/22/18 11:40 Est GFR (MDRD) Af Amer 41 (>60) L 10/22/18 11:40 Est GFR (MDRD) Non-Af 34 (>60) L 10/22/18 11:40 Glucose 212 mg/dL (65-99) H 10/22/18 11:40 Calcium 8.2 mg/dL (8.5-10.1) L 10/22/18 11:40 Corrected Calcium 9.0 mg/dL (8.5-10.1) 10/22/18 11:40 Total Bilirubin 0.50 mg/dL (0.2-1.0) 10/22/18 11:40 AST 12 Units/L (15-37) L 10/22/18 11:40 ALT 15 Units/L (12-78) 10/22/18 11:40 Alkaline Phosphatase 96 Units/L (46-116) 10/22/18 11:40 Creatine Kinase 50 Units/L (39-308) 10/22/18 11:40 CK-MB (CK-2) < 1.0 ng/mL (0-4.0) 10/22/18 11:40 CK/CKMB % Calc 2.0 % (<4) 10/22/18 11:40 Troponin I < 0.02 ng/mL (0-1.5) 10/22/18 11:40 C-Reactive Protein 143.80 mg/L (0-3.0) H 10/22/18 11:40 Total Protein 6.1 g/dL (6.4-8.2) L 10/22/18 11:40 Albumin 3.0 g/dL (3.4-5.0) L 10/22/18 11:40 Globulin 3.1 g/dL (2.5-4.5) 10/22/18 11:40 Albumin/Globulin Ratio 1.0 Ratio (1.1-2.1) L 10/22/18 11:40 Specimen Type Clean catch urine 10/22/18 12:34 Urine Color Yellow (YELLOW) 10/22/18 12:34 Urine Appearance Clear (CLEAR) 10/22/18 12:34 Urine pH 5.0 (5.0 - 8.0) 10/22/18 12:34 Ur Specific [place] 1.015 (1.000-1.030) 10/22/18 12:34 Urine Protein 1+ (NEGATIVE) 10/22/18 12:34 Urine Glucose (UA) Negative (NEGATIVE) 10/22/18 12:34 Urine Ketones Negative (NEGATIVE) 10/22/18 12:34 Urine Occult Blood Negative (NEGATIVE) 10/22/18 12:34 Urine Nitrite Negative (NEGATIVE) 10/22/18 12:34 Urine Bilirubin Negative (NEGATIVE) 10/22/18 12:34 Urine Urobilinogen Normal (NORMAL) 10/22/18 12:34 Ur Leukocyte Esterase Negative (NEGATIVE) 10/22/18 12:34 Urine RBC None seen /HPF (NONE SEEN) 10/22/18 12:34 Urine WBC 0-2 /HPF (NONE SEEN) 10/22/18 12:34 Ur Squamous Epith Cells Rare /HPF (NEGATIVE) 10/22/18 12:34 Amorphous Sediment Trace /HPF (NEGATIVE) 10/22/18 12:34 Urine Bacteria Negative /HPF (NEGATIVE) 10/22/18 12:34 Hyaline Casts Few /LPF (NEGATIVE) 10/22/18 12:34 Ur Culture Indicated? No/not indicated 10/22/18 12:34 Influenza Type A (PCR) Negative (NEGATIVE) 10/22/18 12:34 Influenza Type B (PCR) Negative (NEGATIVE) 10/22/18 12:34 Other Results Comments: Chest: Cardiac silhouette is enlarged but stable. Postoperative changes of CABG are noted. Mild central vascular congestion is similar to prior. There is increased pleural parenchymal opacities ate right lung base. Mild obscuration of the medial left shannan-diaphragm as well. No pneumothorax. Impression: Bibasilar right greater than left pleural parenchymal opacities likely reflective of pneumonia. Underlying central vascular congestion and edema is likely present. XRAY XRAY Interpreted by: Radiologist ADDITIONAL NOTES Additional Notes Additional Notes: Patient admitted for further workup and treatment of bibasilar pneumonia and central vascular congestion
[2018-10-22 11:39] LABS: ABG BASE EXCESS 9.8 mmol/L (-2.0-2.0)
[2018-10-22 11:40] LABS: ABG ALLEN TEST POS; ABG HCO3 39.4 mmol/L (22-26)
[2018-10-22] MEDS ORDERED: SOLU-Medrol 125 MG VIAL IVP ONE (11:48)
[2018-10-22] MEDS ORDERED: SOLU-Medrol 125 MG VIAL ONE (11:49)
[2018-10-22 11:56] LABS: BASOPHILS # (AUTO) 0.1 X10^3/uL (0.0-0.1); BASOPHILS % (AUTO) 0.4 % (0.2-1.0); EOSINOPHILS # (AUTO) 0.3 x10^3/uL (0.0-0.2); EOSINOPHILS % (AUTO) 1.5 % (0.9-2.9); HEMOGLOBIN 9.5 g/dL (13.5-18.0); LYMPHOCYTES # (AUTO) 1.1 X10^3/uL (1.3-2.9); LYMPHOCYTES % (AUTO) 5.8 % (21.0-51.0); MEAN CORPUSCULAR HEMOGLOBIN 25.1 pg (27.0-34.0); MEAN CORPUSCULAR HGB CONC 30.8 g/dL (33.0-35.0); MEAN CORPUSCULAR VOLUME 81.7 fL (80.0-100.0); MONOCYTES # (AUTO) 1.7 x10^3/uL (0.3-0.8); NEUTROPHILS # (AUTO) 15.7 x10^3/uL (2.2-4.8); NEUTROPHILS % (AUTO) 83.3 % (42.0-75.0); PLATELET COUNT 245 X10^3/uL (150.0-450.0); RED CELL DISTRIBUTION WIDTH 19.2 % (11.6-16.5); WHITE BLOOD COUNT 18.9 X10^3/uL (3.6-10.0)
[2018-10-22] MEDS ORDERED: NS 1000 ML 1,000 ML IV SCH (12:00)
[2018-10-22 12:03] LABS: HYPOCHROMASIA SLIGHT; PLATELET MORPHOLOGY COMMENT NORMAL (NORMAL)
[2018-10-22 12:14] LABS: CREATINE KINASE 50 Units/L (39-308); CREATINE KINASE MB < 1.0 ng/mL (0-4.0); TROPONIN I < 0.02 ng/mL (0-1.5)
[2018-10-22 12:18] LABS: CALCIUM 8.2 mg/dL (8.5-10.1); CARBON DIOXIDE 37.2 mmol/L (21-32); CREATININE 2.06 mg/dL (0.70-1.30); TOTAL PROTEIN 6.1 g/dL (6.4-8.2)
[2018-10-22 12:47] LABS: BILIRUBIN,URINE NEGATIVE (NEGATIVE); BLOOD/HEMOGLOBIN,URINE NEGATIVE (NEGATIVE); GLUCOSE, URINE NEGATIVE (NEGATIVE); KETONES,URINE NEGATIVE (NEGATIVE); LEUKOCYTE ESTERASE ,URINE NEGATIVE (NEGATIVE); NITRITES,URINE NEGATIVE (NEGATIVE); PROTEIN,URINE 1+ (NEGATIVE); UROBILINOGEN,URINE NORMAL (NORMAL)
[2018-10-22 12:56] LABS: APPEARANCE,URINE CLEAR (CLEAR); COLOR,URINE YELLOW (YELLOW)
[2018-10-22 13:00] LABS: BACTERIA,URINE NEGATIVE /HPF (NEGATIVE); RBC,URINE NONE SEEN /HPF (NONE SEEN); SQUAMOUS EPITHELIAL CELL,UR RARE /HPF (NEGATIVE)
[2018-10-22 13:01] LABS: AMORPHOUS SEDIMENT,UR TRACE /HPF (NEGATIVE); HYALINE CASTS, URINE FEW /LPF (NEGATIVE)
[2018-10-22 13:42] LABS: ABG BASE EXCESS 14.6 mmol/L (-2.0-2.0)
[2018-10-22 13:43] LABS: ABG ALLEN TEST POS; ABG HCO3 44.8 mmol/L (22-26)
[2018-10-22] MEDS ORDERED: NS 100 ML IV + SPIKE MINIBAG* 100 ML IV ONE (15:04)
[2018-10-22] MEDS ORDERED: ZOSYN VIAL 4.5 GRAMS IV ONE (15:04)
[2018-10-22] MEDS: NS 1/2 1000 ML IV 1,000 ML IV SCH (15:18)
[2018-10-22] MEDS ORDERED: NS 1/2 1000 ML IV 1,000 ML IV ONE (15:18)
[2018-10-22 15:29] LABS: ABG BASE EXCESS 13.6 mmol/L (-2.0-2.0)
[2018-10-22 15:30] LABS: ABG ALLEN TEST POS; ABG HCO3 43.3 mmol/L (22-26)
[2018-10-22] MEDS ORDERED: SALINE 3% 15 ML NEB TX NEB ONE (16:22)
[2018-10-22] MEDS ORDERED: NORFLEX INJ ONE (16:24)
[2018-10-22] MEDS ORDERED: DUONEB 0.5 MG/3 MG NEB SCH (17:00)
[2018-10-22 17:01] VITALS: BMI 49.4
[2018-10-22] MEDS: ROBITUSSIN DM PO SCH ×2 (17:12→21:12)
[2018-10-22] MEDS ORDERED: INSULIN ASPART 6 UNIT SC SCH (17:22)
[2018-10-22] MEDS: NORCO 10/325 TAB PO SCH ×2 (18:42→21:13)
[2018-10-22] MEDS: SNACK - Diabetic Appropriate PO SCH (20:30)
[2018-10-22] MEDS: PULMICORT NEB TX 0.5 MG NEB SCH (20:37)
[2018-10-22] MEDS ORDERED: PROVENTIL NEB TX 0.083% 2.5MG/ 3ML NEB SCH (21:00)
[2018-10-22] MEDS ORDERED: PULMICORT NEB TX 0.5 MG NEB SCH (21:00)
[2018-10-22] MEDS: BUTT CREAM (COMPOUND) ONE ×2 (21:09→21:10)
[2018-10-22] MEDS: ROCEPHIN VIAL 1 GRAM IVP SCH (21:09)
[2018-10-22] MEDS: FLOMAX PO SCH (21:10)
[2018-10-22] MEDS: COREG TAB 6.25 MG PO SCH (21:10)
[2018-10-22] MEDS: PATIENT'S HOME MEDICATION (Melatonin [Melatonin] 5 MG) PO SCH (21:11)
[2018-10-22] MEDS: LYRICA CAP 150 MG PO SCH (21:11)
[2018-10-22] MEDS: MICRO K EXTEN CAP 10 MEQ PO SCH (21:11)
[2018-10-22] MEDS: ZYLOPRIM PO SCH (21:12)
[2018-10-22] MEDS: HumuLIN R SUBCUT PRN (21:52)
[2018-10-22] MEDS ORDERED: ZOSYN VIAL 3.375 GRAMS 3.375 G in NS 100 ML IV + SPIKE MINIBAG* 100 ML IV SCH (22:00)
[2018-10-22] MEDS ORDERED: ZOSYN VIAL 4.5 GRAMS 4.5 G in NS 100 ML IV + SPIKE MINIBAG* 100 ML IV SCH (22:00)
[2018-10-23] MEDS: SOLU-Medrol 40 MG VIAL IVP SCH ×2 (00:09→11:09)
[2018-10-23] MEDS ORDERED: NS 1/2 1000 ML IV 1,000 ML IV ONE ×2 (05:05→16:42)
[2018-10-23] MEDS: NS 1/2 1000 ML IV 1,000 ML IV SCH ×3 (05:11→20:24)
[2018-10-23] MEDS: HumuLIN R SUBCUT PRN ×4 (05:51→20:44)
[2018-10-23 06:11] LABS: ABG BASE EXCESS 14.6 mmol/L (-2.0-2.0)
[2018-10-23 06:13] LABS: ABG ALLEN TEST POS; ABG HCO3 44.3 mmol/L (22-26)
[2018-10-23 06:21] LABS: BASOPHILS % (AUTO) 0.1 % (0.2-1.0); HEMATOCRIT 28.6 % (42.0-54.0); HEMOGLOBIN 8.7 g/dL (13.5-18.0); LYMPHOCYTES # (AUTO) 0.6 X10^3/uL (1.3-2.9); LYMPHOCYTES % (AUTO) 3.6 % (21.0-51.0); MEAN CORPUSCULAR HEMOGLOBIN 25.3 pg (27.0-34.0); MEAN CORPUSCULAR HGB CONC 30.6 g/dL (33.0-35.0); MEAN CORPUSCULAR VOLUME 82.8 fL (80.0-100.0); MEAN PLATELET VOLUME 8.4 fL (7.4-11.0); MONOCYTES # (AUTO) 0.9 x10^3/uL (0.3-0.8); MONOCYTES % (AUTO) 5.2 % (0.0-13.0); NEUTROPHILS # (AUTO) 15.7 x10^3/uL (2.2-4.8); NEUTROPHILS % (AUTO) 91.1 % (42.0-75.0); PLATELET COUNT 225 X10^3/uL (150.0-450.0); RED BLOOD COUNT 3.45 X10^6/uL (4.7-6.0); RED CELL DISTRIBUTION WIDTH 18.2 % (11.6-16.5); WHITE BLOOD COUNT 17.2 X10^3/uL (3.6-10.0)
[2018-10-23 06:34] LABS: ALBUMIN 2.5 g/dL (3.4-5.0); CALCIUM 8.5 mg/dL (8.5-10.1); CARBON DIOXIDE 38.9 mmol/L (21-32); COR CA(FOR HYPOALB) 9.7 mg/dL (8.5-10.1); CREATININE 1.97 mg/dL (0.70-1.30); TOTAL PROTEIN 6.3 g/dL (6.4-8.2)
--- NOTE | 2018-10-23 06:48 | RAD ---
HISTORY: Cough, fever, shortness of breath Study: Chest AP portable Comparison: 10/22/2018 Findings: Patient is status post median sternotomy and CABG. The heart is enlarged. No congestive heart failure is noted. Bibasilar infiltrates are again identified slightly improved on the left and unchanged on the right. Right pleural effusion is likely present. The bony thorax is unremarkable. IMPRESSION: Continued cardiomegaly without congestive heart failure Bibasilar infiltrates slightly improved on the left and unchanged on the right Right pleural effusion Reported By:
[2018-10-23 07:02] LABS: BAND NEUTROPHILS % 14 % (0-10); PLATELET MORPHOLOGY COMMENT NORMAL (NORMAL)
[2018-10-23] MEDS: DUONEB 0.5 MG/3 MG NEB SCH ×4 (09:00→21:13)
[2018-10-23] MEDS: PULMICORT NEB TX 0.5 MG NEB SCH ×2 (09:00→21:13)
[2018-10-23] MEDS: ROCEPHIN VIAL 1 GRAM IVP SCH (09:23)
[2018-10-23] MEDS: ROBITUSSIN DM PO SCH ×4 (09:23→20:25)
[2018-10-23] MEDS: MICRO K EXTEN CAP 10 MEQ PO SCH ×2 (09:25→20:21)
[2018-10-23] MEDS: CELEXA PO SCH (09:25)
[2018-10-23] MEDS: FLOMAX PO SCH ×2 (09:25→20:27)
[2018-10-23] MEDS: LASIX PO SCH (09:25)
[2018-10-23] MEDS: COREG TAB 6.25 MG PO SCH ×2 (09:25→20:21)
[2018-10-23] MEDS: LYRICA CAP 150 MG PO SCH ×2 (09:25→20:21)
[2018-10-23] MEDS: PLAVIX PO SCH (09:26)
[2018-10-23] MEDS: NORCO 10/325 TAB PO SCH ×6 (09:28→20:22)
[2018-10-23] MEDS: COLACE CAP 100 MG PO SCH (09:30)
[2018-10-23] MEDS: ZYLOPRIM PO SCH (20:20)
[2018-10-23] MEDS: SNACK - Diabetic Appropriate PO SCH (20:24)
[2018-10-23] MEDS: PATIENT'S HOME MEDICATION (Melatonin [Melatonin] 5 MG) PO SCH (20:27)
[2018-10-24] MEDS: DUONEB 0.5 MG/3 MG NEB SCH ×3 (00:34→08:19)
[2018-10-24] MEDS ORDERED: NS 1/2 1000 ML IV 1,000 ML IV ONE (05:40)
[2018-10-24] MEDS: HumuLIN R SUBCUT PRN ×2 (05:41→11:10)
[2018-10-24] MEDS: NS 1/2 1000 ML IV 1,000 ML IV SCH ×2 (05:41→08:28)
[2018-10-24 05:56] LABS: BASOPHILS # (AUTO) 0.1 X10^3/uL (0.0-0.1); BASOPHILS % (AUTO) 0.5 % (0.2-1.0); HEMATOCRIT 27.8 % (42.0-54.0); HEMOGLOBIN 8.4 g/dL (13.5-18.0); LYMPHOCYTES # (AUTO) 0.7 X10^3/uL (1.3-2.9); LYMPHOCYTES % (AUTO) 4.3 % (21.0-51.0); MEAN CORPUSCULAR HEMOGLOBIN 25.1 pg (27.0-34.0); MEAN CORPUSCULAR HGB CONC 30.2 g/dL (33.0-35.0); MEAN CORPUSCULAR VOLUME 83.3 fL (80.0-100.0); MEAN PLATELET VOLUME 8.4 fL (7.4-11.0); MONOCYTES # (AUTO) 1.1 x10^3/uL (0.3-0.8); MONOCYTES % (AUTO) 6.4 % (0.0-13.0); NEUTROPHILS # (AUTO) 15.3 x10^3/uL (2.2-4.8); NEUTROPHILS % (AUTO) 88.8 % (42.0-75.0); PLATELET COUNT 253 X10^3/uL (150.0-450.0); RED BLOOD COUNT 3.33 X10^6/uL (4.7-6.0); RED CELL DISTRIBUTION WIDTH 18.6 % (11.6-16.5); WHITE BLOOD COUNT 17.2 X10^3/uL (3.6-10.0)
[2018-10-24 06:12] LABS: ALBUMIN 2.5 g/dL (3.4-5.0); CALCIUM 8.5 mg/dL (8.5-10.1); CARBON DIOXIDE 36.1 mmol/L (21-32); COR CA(FOR HYPOALB) 9.7 mg/dL (8.5-10.1); CREATININE 1.84 mg/dL (0.70-1.30); TOTAL PROTEIN 6.3 g/dL (6.4-8.2)
[2018-10-24 06:28] LABS: HYPOCHROMASIA SLIGHT; MICROCYTOSIS SLIGHT; PLATELET MORPHOLOGY COMMENT NORMAL (NORMAL)
[2018-10-24] MEDS: PULMICORT NEB TX 0.5 MG NEB SCH (08:19)
[2018-10-24] MEDS: FLOMAX PO SCH (08:26)
[2018-10-24] MEDS: ROCEPHIN VIAL 1 GRAM IVP SCH (08:26)
[2018-10-24] MEDS: CELEXA PO SCH (08:26)
[2018-10-24] MEDS: ROBITUSSIN DM PO SCH ×2 (08:26→12:04)
[2018-10-24] MEDS: MICRO K EXTEN CAP 10 MEQ PO SCH (08:27)
[2018-10-24] MEDS: NORCO 10/325 TAB PO SCH ×2 (08:27→12:04)
[2018-10-24] MEDS: PLAVIX PO SCH (08:27)
[2018-10-24] MEDS: LASIX PO SCH (08:27)
[2018-10-24] MEDS: LYRICA CAP 150 MG PO SCH (08:27)
[2018-10-24] MEDS: COREG TAB 6.25 MG PO SCH (08:27)
[2018-10-24] MEDS: COLACE CAP 100 MG PO SCH (08:27)
[2018-10-24] MEDS ORDERED: PREDNISONE TAB 10 MG PO SCH (09:00)
[2018-10-24] MEDS ORDERED: NS 100 ML IV 100 ML with VENOFER 400 MG IV NR ×2 (11:00)
[2018-10-24 15:18] VITALS: BP 135/61
== END 2018-10-24 15:40 | disposition home or self-care (01) | DRG 189 ==
LOC: ER 11:11 → ICU 14:39
PROVIDERS: ADMIT Internal Medicine; ATTEND Obstetrics & Gynecology Obstetrics
CPT/HCPCS: 36415; 36600; 51702; 71010; 71045; 80053; 81001; 82270; 82550; 82553; 82607; 82728; 82746; 82803; 83540; 84466; 84484; 85025; 85378; 86140; 87040; 87070; 87077; 87186; 87205; 87502; 93005; 94640; 94660; 96365; 96374; 96375; 97163; 99284; 99285; A4222; A4618; A7030; J0696; J1100; J1756; J1815; J2360; J2543; J2920; J2930; J7050; J7512; J7613; J7620; J7626

== ENCOUNTER 2018-10-25 17:21 | Observation (INO) ==
[2018-10-25] MEDS ORDERED: DUONEB 0.5 MG/3 MG ONE (17:59)
[2018-10-25] MEDS ORDERED: DUONEB 0.5 MG/3 MG NEB ONE (18:10)
--- NOTE | 2018-10-25 18:47 | DR.SOBA ---
HPI Time Seen Time Seen by Provider: 10/25/18 18:41 Primary Care Physician Primary Care Physician: DR HATCH HPI Comment HPI Comment: D/C HOME FROM HOSPITAL AND HAVING DDIFFICULTY USING TRILOGY MACHINE. HAVING PRODUCTIVE COUGH WITH BLOODY SPUTUM. 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 APPARENTLY. HAD BLOOD IN STOOL ALSO. Complaints Chief Complaint Doctors Comments: CHEST PAIN, SOB THAT IS WORSE TODAY. Chief Complaint:: PT WAS DISCHARGE FROM HOSPITAL YESTERDAY AND GOT HOME AND PT'S COULDN'T WORK HIS HOME TRILOGY MACHINE AND OVER THE PAST HOUR HE BECAME VERY SHORT OF BREATH. HE HAS HAD PRODUCTIVE COUGH WITH BLOODY SPUTUM. Reviewed Nurses Notes Reviewed: Yes Source History Provided: EMS Mode of Arrival Mode of Arrival: EMS Timing Onset of Chief Complaint: 10/25/18 Duration Duration: Hours Context Onset:: At Rest and With Light Exertion PE Risk Factors:: Immobilization History of:: COPD and CHF Currently on:: Inhaled Bronchodilators Prehospital Care:: O2 and Furosemide Modifying Factors Worsens:: Lying Flat Improves:: Sitting Up Associated Signs and Symptoms Associated Signs and Symptoms: Wheeze, Cough, Hemoptysis and Leg Swelling If Chest Pain Quality: Sharp and Stabbing Location: Left Upper Chest If Cough Cough: Productive and Bloody PMH PMH Past Medical History: Yes Past Medical History: CHF, COPD, Dyslipidemia, GERD, Hypertension, CT and Sleep Apnea Past Surgical History: Yes Surgical History: CABG/Valve Surgery Past Surgical History Comment: CATARACT REPAIR, HERNIA REPAIR, THUMB SURGERY Family History History of Family Medical Conditions: Yes Family Medical History: Diabetes Mellitus, Cancer, CT and Hypertension Social History Does patient currently use any type of tobacco product: No Have you used tobacco products in the last 12 months: No Type of Tobacco Use: Cigarettes Does any household member use tobacco: No Alcohol Use: None Do you use any recreational Drugs:: No Lives With: Family Lives Where: Home infectious screening In the last 2 months have you had wt loss of >10#?: NO Have you had fever, night sweats or hemotysis?: No Have you traveled outside the country in the last 6 months?: No Isolation: Standard ROS Review of Systems Constitutional: Malaise, Weakness and Fatigue Eyes: No Symptoms Reported ENTM: Nose Congestion Respiratoy: Productive Cough, Wheezing and Hemoptysis Cardiovascular: Chest Pain and Edema Gastrointestinal/Abdominal: Nausea Neurological: Emotional Problems, Weakness and Dizziness Musculoskeletal: Back Pain, Muscle Pain and Chest wall Integumentary: Dryness Hematologic/Lymphatic: No Symptoms Reported Endocrine: No Symptoms Reported Psychiatric: No Symptoms Reported and Anxiety All Other Systems: Reviewed and Negative PE Vital Signs Vitals: Temperature 99.6 F Pulse Rate [Apical] 69 Pulse Rate 91 Respiratory Rate 23 Blood Pressure [Right Arm] 127/61 Blood Pressure [Left Arm] 144/81 Blood Pressure 136/61 O2 Sat by Pulse Oximetry 92 General Limitations: No Limitations General Appearance: Alert and In Distress Head Head Exam: Normal Inspection Eyes Eye exam: PERRL and EOMI; negative Scleral Icterus and Conjunctival Injection ENT ENT Exam: Normal Oropharynx, Normal External Ear Exam and TM's Normal Bilaterally Neck Neck Exam: Trachea Midline; negative Tenderness and Meningismus Chest Chest Inspection: Symmetric Chest Wall Rise Respiratory Respiratory Exam: Respiratory Distress Respiratory Exam: Bilateral: Wheezing and Bilateral: Rhonchi, Upper: Wheezing and Upper: Rhonchi and Lower: Wheezing and Lower: Rhonchi Cardiovascular Cardiovascular Exam: Regular Rate and Normal Rhythm Abdominal Exam Abdominal Exam: Normal Bowel Sounds, Soft and Tenderness Abdominal Tenderness: Diffuse and Mild Extremities Extremities Exam: Edema Back Back Exam: Paraspinal Tenderness Neurologic Neurological Exam: Alert and Oriented X3; negative Motor Sensory Deficit Psychiatric Psychiatric Exam: Normal Affect and Anxious Skin Skin Exam: Erythema MDM Differential Diagnosis Differential Diagnosis: Bronchitis, COPD, Dysrhythmia, Hypertensive Emergency, Mycardial Infarction, Pneumonia, Pneumothorax, Pulmonary embolism and Respiratory Insufficiency COURSE Treatment Treatment: SEE ORDERS. Education/Counseling Education/Counseling: Patient and Family Educated On: Diagnosis ROR Labs Reviewed Result Diagrams: 10/25/18 18:53 10/25/18 18:53 Laboratory: WBC 10.4 X10^3/uL (3.6-10.0) H 10/25/18 18:53 RBC 3.79 X10^6/uL (4.7-6.0) L 10/25/18 18:53 Hgb 9.6 g/dL (13.5-18.0) L 10/25/18 18:53 Hct 30.9 % (42.0-54.0) L 10/25/18 18:53 MCV 81.7 fL (80.0-100.0) 10/25/18 18:53 MCH 25.4 pg (27.0-34.0) L 10/25/18 18:53 MCHC 31.1 g/dL (33.0-35.0) L 10/25/18 18:53 RDW 18.3 % (11.6-16.5) H 10/25/18 18:53 Plt Count 260 X10^3/uL (150.0-450.0) 10/25/18 18:53 Plt Count Comment Adequate (ADEQUATE) 10/25/18 18:53 MPV 7.9 fL (7.4-11.0) 10/25/18 18:53 Neut % (Auto) 75.4 % (42.0-75.0) H 10/25/18 18:53 Lymph % (Auto) 9.5 % (21.0-51.0) L 10/25/18 18:53 [place] % (Auto) 13.8 % (0.0-13.0) H 10/25/18 18:53 Eos % (Auto) 0.6 % (0.9-2.9) L 10/25/18 18:53 Baso % (Auto) 0.7 % (0.2-1.0) 10/25/18 18:53 Neut # (Auto) 7.9 x10^3/uL (2.2-4.8) H 10/25/18 18:53 Lymph # (Auto) 1.0 X10^3/uL (1.3-2.9) L 10/25/18 18:53 [place] # (Auto) 1.4 x10^3/uL (0.3-0.8) H 10/25/18 18:53 Eos # (Auto) 0.1 x10^3/uL (0.0-0.2) 10/25/18 18:53 Baso # (Auto) 0.1 X10^3/uL (0.0-0.1) 10/25/18 18:53 Absolute Nucleated RBC 0.1 /100WBC 10/25/18 18:53 Plt Morphology Comment Normal (NORMAL) 10/25/18 18:53 RBC Morphology Abnormal (NORMAL) 10/25/18 18:53 Hypochromasia Slight A 10/25/18 18:53 Anisocytosis Slight A 10/25/18 18:53 Sample Site Rr 10/25/18 20:45 ABG pH 7.380 (7.35-7.45) 10/25/18 20:45 ABG pCO2 84.0 mmHg (35.0-45.0) H* 10/25/18 20:45 ABG pO2 50.0 mmHg (80.0-100.0) L 10/25/18 20:45 ABG HCO3 49.7 mmol/L (22-26) H* 10/25/18 20:45 ABG O2 Saturation 84.0 % (90-100) L* 10/25/18 20:45 ABG Base Excess 20.2 mmol/L (-2.0-2.0) H 10/25/18 20:45 Herson Test Pos 10/25/18 20:45 A-a Gradient 73.0 mmHg 10/25/18 20:45 FiO2 32.0 10/25/18 20:45 Blood Gas Comments Jeremiah well ae 10/25/18 20:45 Sodium 144 mmol/L (136-145) 10/25/18 18:53 Corrected Sodium 147 mmol/L (136-145) H 10/25/18 18:53 Potassium 3.7 mmol/L (3.5-5.1) 10/25/18 18:53 Chloride 101 mmol/L (98-107) 10/25/18 18:53 Carbon Dioxide 42.5 mmol/L (21-32) H* 10/25/18 18:53 BUN 38 mg/dL (7-18) H 10/25/18 18:53 Creatinine 1.75 mg/dL (0.70-1.30) H 10/25/18 18:53 Est GFR (MDRD) Af Amer 49 (>60) L 10/25/18 18:53 Est GFR (MDRD) Non-Af 41 (>60) L 10/25/18 18:53 Glucose 238 mg/dL (65-99) H 10/25/18 18:53 POC Glucose (mg/dL) 219 mg/dL (65-99) H 10/26/18 05:59 Calcium 8.4 mg/dL (8.5-10.1) L 10/25/18 18:53 Corrected Calcium 9.4 mg/dL (8.5-10.1) 10/25/18 18:53 Total Bilirubin 0.20 mg/dL (0.2-1.0) 10/25/18 18:53 AST 11 Units/L (15-37) L 10/25/18 18:53 ALT 18 Units/L (12-78) 10/25/18 18:53 Alkaline Phosphatase 73 Units/L (46-116) 10/25/18 18:53 Creatine Kinase < 7 Units/L (39-308) L 10/25/18 18:53 CK-MB (CK-2) < 1.0 ng/mL (0-4.0) 10/25/18 18:53 CK/CKMB % Calc 10.0 % (<4) 10/25/18 18:53 Troponin I < 0.02 ng/mL (0-1.5) 10/25/18 18:53 Total Protein 6.4 g/dL (6.4-8.2) 10/25/18 18:53 Albumin 2.7 g/dL (3.4-5.0) L 10/25/18 18:53 Globulin 3.7 g/dL (2.5-4.5) 10/25/18 18:53 Albumin/Globulin Ratio 0.7 Ratio (1.1-2.1) L 10/25/18 18:53 Specimen Type Catherized urine 10/25/18 21:38 Urine Color Yellow (YELLOW) 10/25/18 21:38 Urine Appearance Clear (CLEAR) 10/25/18 21:38 Urine pH 6.0 (5.0 - 8.0) 10/25/18 21:38 Ur Specific [place] 1.010 (1.000-1.030) 10/25/18 21:38 Urine Protein 1+ (NEGATIVE) 10/25/18 21:38 Urine Glucose (UA) Negative (NEGATIVE) 10/25/18 21:38 Urine Ketones Negative (NEGATIVE) 10/25/18 21:38 Urine Occult Blood Negative (NEGATIVE) 10/25/18 21:38 Urine Nitrite Negative (NEGATIVE) 10/25/18 21:38 Urine Bilirubin Negative (NEGATIVE) 10/25/18 21:38 Urine Urobilinogen Normal (NORMAL) 10/25/18 21:38 Ur Leukocyte Esterase Negative (NEGATIVE) 10/25/18 21:38 Urine RBC None seen /HPF (NONE SEEN) 10/25/18 21:38 Urine WBC None seen /HPF (NONE SEEN) 10/25/18 21:38 Ur Squamous Epith Cells Negative /HPF (NEGATIVE) 10/25/18 21:38 Urine Bacteria Negative /HPF (NEGATIVE) 10/25/18 21:38 Ur Culture Indicated? No/not indicated 10/25/18 21:38 Blood Type O NEGATIVE 10/25/18 21:36 Antibody Screen Negative 10/25/18 21:36 Crossmatch See Detail 10/25/18 21:36 XRAY XRAY Interpreted by: Radiologist XRAY Findings: REPORT DISCUSS WITH PATIENT. EKG Rhythm: NSR Block: RBBB
[2018-10-25 19:00] LABS: BASOPHILS # (AUTO) 0.1 X10^3/uL (0.0-0.1); BASOPHILS % (AUTO) 0.7 % (0.2-1.0); EOSINOPHILS # (AUTO) 0.1 x10^3/uL (0.0-0.2); EOSINOPHILS % (AUTO) 0.6 % (0.9-2.9); HEMATOCRIT 30.9 % (42.0-54.0); HEMOGLOBIN 9.6 g/dL (13.5-18.0); LYMPHOCYTES % (AUTO) 9.5 % (21.0-51.0); MEAN CORPUSCULAR HEMOGLOBIN 25.4 pg (27.0-34.0); MEAN CORPUSCULAR HGB CONC 31.1 g/dL (33.0-35.0); MEAN CORPUSCULAR VOLUME 81.7 fL (80.0-100.0); MEAN PLATELET VOLUME 7.9 fL (7.4-11.0); MONOCYTES # (AUTO) 1.4 x10^3/uL (0.3-0.8); MONOCYTES % (AUTO) 13.8 % (0.0-13.0); NEUTROPHILS # (AUTO) 7.9 x10^3/uL (2.2-4.8); NEUTROPHILS % (AUTO) 75.4 % (42.0-75.0); PLATELET COUNT 260 X10^3/uL (150.0-450.0); RED BLOOD COUNT 3.79 X10^6/uL (4.7-6.0); RED CELL DISTRIBUTION WIDTH 18.3 % (11.6-16.5); WHITE BLOOD COUNT 10.4 X10^3/uL (3.6-10.0)
[2018-10-25 19:06] LABS: ANISOCYTOSIS SLIGHT; HYPOCHROMASIA SLIGHT; PLATELET MORPHOLOGY COMMENT NORMAL (NORMAL)
--- NOTE | 2018-10-25 19:06 | RAD ---
History: Cough Exam: Portable chest Comparison: 11/02/2017 Technique: Portable AP chest. Findings: The heart is moderately enlarged but unchanged. The pulmonary vessels are engorged centrally and more prominent . There are some hazy perihilar and bibasilar opacities which have increased . There is minimal blunting of the costophrenic sulci which is more apparent . There are postop changes seen along the mediastinum and sternum. IMPRESSION: Moderate cardiomegaly and mild pulmonary edema which is more prominent. Hazy bibasilar opacities and probable small bibasilar pleural effusions which are more apparent. Reported By:
[2018-10-25 19:21] LABS: ALANINE AMINOTRANSFERASE 18 Units/L (12-78); ALBUMIN 2.7 g/dL (3.4-5.0); ALKALINE PHOSPHATASE 73 Units/L (46-116); ASPARTATE AMINO TRANSFERASE 11 Units/L (15-37); BLOOD UREA NITROGEN 38 mg/dL (7-18); CALCIUM 8.4 mg/dL (8.5-10.1); CHLORIDE 101 mmol/L (98-107); COR CA(FOR HYPOALB) 9.4 mg/dL (8.5-10.1); COR NA(FOR HYPERGLY) 147 mmol/L (136-145); CREATINE KINASE < 7 Units/L (39-308); CREATINE KINASE MB < 1.0 ng/mL (0-4.0); CREATININE 1.75 mg/dL (0.70-1.30); SODIUM 144 mmol/L (136-145); TOTAL PROTEIN 6.4 g/dL (6.4-8.2); TROPONIN I < 0.02 ng/mL (0-1.5); eGFR NON BLACK RACES 41 (>60)
[2018-10-25 19:32] LABS: BILIRUBIN,URINE NEGATIVE (NEGATIVE); BLOOD/HEMOGLOBIN,URINE NEGATIVE (NEGATIVE); GLUCOSE, URINE 1+ (NEGATIVE); KETONES,URINE NEGATIVE (NEGATIVE); LEUKOCYTE ESTERASE ,URINE NEGATIVE (NEGATIVE); NITRITES,URINE NEGATIVE (NEGATIVE); PROTEIN,URINE 1+ (NEGATIVE); UROBILINOGEN,URINE NORMAL (NORMAL)
[2018-10-25 19:33] LABS: APPEARANCE,URINE CLEAR (CLEAR); COLOR,URINE YELLOW (YELLOW)
[2018-10-25 19:36] LABS: CARBON DIOXIDE 42.5 mmol/L (21-32)
[2018-10-25 19:43] LABS: RBC,URINE 0-2 /HPF (NONE SEEN)
[2018-10-25 19:44] LABS: BACTERIA,URINE TRACE /HPF (NEGATIVE); SQUAMOUS EPITHELIAL CELL,UR NEGATIVE /HPF (NEGATIVE)
[2018-10-25 20:50] LABS: ABG BASE EXCESS 20.2 mmol/L (-2.0-2.0)
[2018-10-25 20:51] LABS: ABG HCO3 49.7 mmol/L (22-26)
[2018-10-25 20:52] LABS: ABG ALLEN TEST POS
[2018-10-25] MEDS ORDERED: SALINE 3% 15 ML NEB TX ONE (20:58)
[2018-10-25] MEDS ORDERED: SALINE 3% 15 ML NEB TX NEB ONE (21:12)
[2018-10-25] MEDS ORDERED: LASIX IVP ONE ×2 (21:45→22:50)
[2018-10-25] MEDS: LASIX IVP SCH (21:51)
[2018-10-25 21:56] LABS: BILIRUBIN,URINE NEGATIVE (NEGATIVE); BLOOD/HEMOGLOBIN,URINE NEGATIVE (NEGATIVE); GLUCOSE, URINE NEGATIVE (NEGATIVE); KETONES,URINE NEGATIVE (NEGATIVE); LEUKOCYTE ESTERASE ,URINE NEGATIVE (NEGATIVE); NITRITES,URINE NEGATIVE (NEGATIVE); PROTEIN,URINE 1+ (NEGATIVE); UROBILINOGEN,URINE NORMAL (NORMAL)
[2018-10-25 22:03] LABS: APPEARANCE,URINE CLEAR (CLEAR); COLOR,URINE YELLOW (YELLOW)
[2018-10-25 22:04] LABS: BACTERIA,URINE NEGATIVE /HPF (NEGATIVE); RBC,URINE NONE SEEN /HPF (NONE SEEN); SQUAMOUS EPITHELIAL CELL,UR NEGATIVE /HPF (NEGATIVE)
[2018-10-26] MEDS ORDERED: NS 250 ML IV 250 ML IV ONE (00:19)
[2018-10-26] MEDS: DUONEB 0.5 MG/3 MG NEB SCH ×6 (00:45→20:34)
[2018-10-26] MEDS ORDERED: DUONEB 0.5 MG/3 MG NEB SCH (01:00)
[2018-10-26] MEDS ORDERED: LASIX ONE (04:16)
[2018-10-26] MEDS: HumuLIN R SC PRN ×4 (06:05→21:26)
[2018-10-26] MEDS: PULMICORT NEB TX 0.5 MG NEB SCH ×2 (08:12→20:35)
[2018-10-26] MEDS: LASIX IVP SCH ×4 (08:30→21:26)
[2018-10-26] MEDS ORDERED: PULMICORT NEB TX 0.5 MG NEB SCH (09:00)
[2018-10-26 10:53] LABS: BASOPHILS # (AUTO) 0.1 X10^3/uL (0.0-0.1); BASOPHILS % (AUTO) 0.5 % (0.2-1.0); EOSINOPHILS # (AUTO) 0.1 x10^3/uL (0.0-0.2); EOSINOPHILS % (AUTO) 0.9 % (0.9-2.9); HEMATOCRIT 36.2 % (42.0-54.0); HEMOGLOBIN 11.3 g/dL (13.5-18.0); LYMPHOCYTES % (AUTO) 7.9 % (21.0-51.0); MEAN CORPUSCULAR HEMOGLOBIN 25.6 pg (27.0-34.0); MEAN CORPUSCULAR HGB CONC 31.4 g/dL (33.0-35.0); MEAN CORPUSCULAR VOLUME 81.5 fL (80.0-100.0); MEAN PLATELET VOLUME 8.1 fL (7.4-11.0); MONOCYTES # (AUTO) 1.4 x10^3/uL (0.3-0.8); MONOCYTES % (AUTO) 11.5 % (0.0-13.0); NEUTROPHILS # (AUTO) 9.7 x10^3/uL (2.2-4.8); NEUTROPHILS % (AUTO) 79.2 % (42.0-75.0); PLATELET COUNT 276 X10^3/uL (150.0-450.0); RED BLOOD COUNT 4.44 X10^6/uL (4.7-6.0); RED CELL DISTRIBUTION WIDTH 18.3 % (11.6-16.5); WHITE BLOOD COUNT 12.2 X10^3/uL (3.6-10.0)
[2018-10-26 10:59] LABS: ALBUMIN 2.9 g/dL (3.4-5.0); CALCIUM 8.8 mg/dL (8.5-10.1); CHOL/HDL RATIO 3.3 (0.0-5.0); COR CA(FOR HYPOALB) 9.7 mg/dL (8.5-10.1); CREATININE 1.75 mg/dL (0.70-1.30); TOTAL PROTEIN 6.8 g/dL (6.4-8.2)
[2018-10-26 11:02] LABS: CARBON DIOXIDE 42.3 mmol/L (21-32)
[2018-10-26 11:11] LABS: CKMB % 2.8 % (<4); CREATINE KINASE 36 Units/L (39-308); CREATINE KINASE MB < 1.0 ng/mL (0-4.0); TROPONIN I 0.02 ng/mL (0-1.5)
[2018-10-26 11:13] LABS: ANISOCYTOSIS SLIGHT; HYPOCHROMASIA SLIGHT; PLATELET MORPHOLOGY COMMENT NORMAL (NORMAL)
[2018-10-26 11:15] VITALS: BMI 68.8
[2018-10-26] MEDS ORDERED: NS 100 ML IV 100 ML with VENOFER 400 MG IV NR ×2 (13:00)
[2018-10-26] MEDS ORDERED: LEXAPRO ONE (13:23)
[2018-10-26] MEDS ORDERED: POTASSIUM CHL 40 MEQ/NS 0.45% 500 ML IV PRN (13:27)
[2018-10-26] MEDS ORDERED: MICRO K EXTEN CAP 10 MEQ PO PRN (13:27)
[2018-10-26] MEDS ORDERED: POTASSIUM CHL 60 MEQ/NS 0.45% 500 ML IV PRN (13:27)
[2018-10-26] MEDS ORDERED: KLOR-CON PO PRN (13:27)
[2018-10-26] MEDS ORDERED: POTASSIUM CHLORIDE LIQ 20 MEQ UDC PO PRN (13:27)
[2018-10-26] MEDS ORDERED: K-RIDER 10 MEQ/NS 100 ML 10 MEQ/100 ML BAG IV PRN (13:27)
[2018-10-26] MEDS: LEXAPRO PO SCH (13:27)
[2018-10-26] MEDS ORDERED: K-DUR TAB 20 MEQ PO PRN (13:27)
[2018-10-26] MEDS: COREG TAB 6.25 MG PO SCH ×2 (18:42→23:15)
[2018-10-26] MEDS: NORCO 10/325 TAB PO SCH ×2 (18:42→23:15)
[2018-10-26 19:48] LABS: CKMB % 2.9 % (<4); CREATINE KINASE 34 Units/L (39-308); CREATINE KINASE MB < 1.0 ng/mL (0-4.0); TROPONIN I < 0.02 ng/mL (0-1.5)
[2018-10-26] MEDS ORDERED: ROBITUSSIN DM PO PRN (19:50)
[2018-10-26] MEDS ORDERED: ROBITUSSIN DM ONE (19:52)
[2018-10-27] MEDS: DUONEB 0.5 MG/3 MG NEB SCH ×3 (00:10→08:50)
--- NOTE | 2018-10-27 05:31 | RAD ---
Chest, one view Indication: Shortness of breath Comparison: 10/25/2018 Findings: There is stable enlargement of the cardiac silhouette. Prior median sternotomy noted. There is persistent interstitial edema and stable trace bilateral effusions. No acute infiltrate is identified. No pneumothorax. Impression: Stable cardiomegaly, trace bilateral effusions and interstitial edema. Reported By:
[2018-10-27] MEDS: LASIX IVP SCH (05:38)
[2018-10-27 06:02] LABS: BASOPHILS % (AUTO) 0.4 % (0.2-1.0); EOSINOPHILS # (AUTO) 0.3 x10^3/uL (0.0-0.2); EOSINOPHILS % (AUTO) 2.9 % (0.9-2.9); HEMATOCRIT 35.3 % (42.0-54.0); HEMOGLOBIN 11.3 g/dL (13.5-18.0); LYMPHOCYTES # (AUTO) 1.1 X10^3/uL (1.3-2.9); MEAN CORPUSCULAR HEMOGLOBIN 25.9 pg (27.0-34.0); MEAN CORPUSCULAR HGB CONC 31.9 g/dL (33.0-35.0); MEAN CORPUSCULAR VOLUME 81.3 fL (80.0-100.0); MEAN PLATELET VOLUME 8.1 fL (7.4-11.0); MONOCYTES # (AUTO) 1.2 x10^3/uL (0.3-0.8); MONOCYTES % (AUTO) 11.9 % (0.0-13.0); NEUTROPHILS # (AUTO) 7.5 x10^3/uL (2.2-4.8); NEUTROPHILS % (AUTO) 73.8 % (42.0-75.0); PLATELET COUNT 275 X10^3/uL (150.0-450.0); RED BLOOD COUNT 4.34 X10^6/uL (4.7-6.0); RED CELL DISTRIBUTION WIDTH 17.9 % (11.6-16.5); WHITE BLOOD COUNT 10.2 X10^3/uL (3.6-10.0)
[2018-10-27 06:20] LABS: ALBUMIN 2.7 g/dL (3.4-5.0); CALCIUM 9.2 mg/dL (8.5-10.1); COR CA(FOR HYPOALB) 10.2 mg/dL (8.5-10.1); CREATININE 1.67 mg/dL (0.70-1.30); TOTAL PROTEIN 6.5 g/dL (6.4-8.2)
[2018-10-27 06:25] LABS: CARBON DIOXIDE 43.1 mmol/L (21-32)
[2018-10-27 06:28] LABS: HYPOCHROMASIA SLIGHT; PLATELET MORPHOLOGY COMMENT NORMAL (NORMAL)
[2018-10-27 06:29] LABS: ANISOCYTOSIS SLIGHT
[2018-10-27] MEDS ORDERED: LEXAPRO ONE (08:11)
[2018-10-27] MEDS: COREG TAB 6.25 MG PO SCH (08:21)
[2018-10-27] MEDS: LEXAPRO PO SCH (08:22)
[2018-10-27] MEDS: PULMICORT NEB TX 0.5 MG NEB SCH (08:50)
[2018-10-27 09:48] VITALS: BP 112/60
[2018-10-28] MEDS ORDERED: LASIX PO SCH (09:00)
== END 2018-10-27 11:00 | disposition home or self-care (01) ==
LOC: ICU 17:22 → ER 17:22 → ICU 21:56
PROVIDERS: ADMIT Obstetrics & Gynecology Obstetrics; ATTEND Obstetrics & Gynecology Obstetrics
CPT/HCPCS: 36415; 36430; 36600; 51702; 71010; 71045; 80053; 80061; 81001; 82550; 82553; 82607; 82728; 82746; 82803; 83540; 83735; 84132; 84466; 84484; 85025; 86850; 86900; 86901; 86922; 87070; 87205; 93005; 94640; 94669; 96365; 96372; 96374; 99282; 99284; A4216; P9016; G0378; J1756; J1815; J1940; J7050; J7620; J7626

== ENCOUNTER 2018-10-27 11:00 | Inpatient (IN) ==
[2018-10-27] MEDS ORDERED: K-DUR TAB 20 MEQ PO PRN (11:59)
[2018-10-27] MEDS ORDERED: POTASSIUM CHL 60 MEQ/NS 0.45% 500 ML IV PRN (11:59)
[2018-10-27] MEDS ORDERED: POTASSIUM CHL 40 MEQ/NS 0.45% 500 ML IV PRN (11:59)
[2018-10-27] MEDS ORDERED: POTASSIUM CHLORIDE LIQ 20 MEQ UDC PO PRN (11:59)
[2018-10-27] MEDS ORDERED: MICRO K EXTEN CAP 10 MEQ PO PRN (11:59)
[2018-10-27] MEDS ORDERED: K-RIDER 10 MEQ/NS 100 ML 10 MEQ/100 ML BAG IV PRN (11:59)
[2018-10-27] MEDS ORDERED: KLOR-CON PO PRN (11:59)
[2018-10-27] MEDS: ROBITUSSIN DM PO PRN ×2 (12:06→21:27)
[2018-10-27] MEDS: DUONEB 0.5 MG/3 MG NEB SCH ×2 (12:06→20:43)
[2018-10-27] MEDS: NORCO 10/325 TAB PO SCH ×3 (13:57→20:02)
--- NOTE | 2018-10-27 15:52 | PT/OTEVAL ---
PT/OT OBJECTIVES - HISTORY Prescription: PT Consult Diagnosis: S/P Acute on Chronic Respiratory Failure, CHF, Anemia Precautions: falls, SOBs, continous O2 supplement PMH: Pertinent Dx & PMHx is significant but not limited to pre-renal azotemia, pulmonary vascular congestion, chest pain, abdominal hematoma, anemia, anxiety, cellulitis of leg, & respiratory distress. Prior Level of Function: Assistance Required Other: Per Pt. & Pt.'s family interview, Pt. lives with family in a one level house with 4 steps to enter. Pt. has a ramp which he use when getting in & out of the house. Pt. is independent with bed mobility, transfers from recliner to chair & gait using a RW for short distances & sometimes no AD. Pt.'s reports Pt. can be impulsive in performing tasks. Pt. uses O2 continuous O2 supplement at home. - COGNITION Mental Status: Alert, Oriented, Name, Place, Purpose, Agitated, Decreased Safety Awarenes Communication Status: Verbal Ability to Follow Directions: 2 Step - PAIN Abdomen Pain Scale: No Pain Comments: L LE - BED MOBILITY Rolling: Minimal Scooting: Moderate Bridging: Moderate - TRANSFERS Supine to Sit: Moderate Sit to Stand: Minimal Sit or Stand Pivot: Minimal - BALANCE Static Sitting: Good Standing: Fair Dynamic Sitting: Good Standing: Fair Balance Comment: Fair/fair- standing S/D - HAND DOMINANCE Extremity Function: Hand Dominance: Right - ROM Bilateral LE ROM: WFL Muscle Tone: WFL - STRENGTH Bilateral LE Strength Number: 4 Other comment: 4-/5 Bilateral UE Strength Number: 3 Other comment: 3+/5 Grossly graded - GAIT Pt. ambulates how many feet?: 30 (decrease step length/height) Amount of assistance required: Minimal Type of Assistive Device: Rolling Walker PT/OT ASSESSMENT - PT Problem List: Decreased Bed Mobility, Decreased Transfers, Decreased Gait, Decreased Balance, Decreased Safety, Decreased LE Strength - PT GOALS Short Term Goals Days: 10 Mobility: improve rolling to L<->R & supine <->sit at supv/touch A for EOB tasks. Transfers: improve transfers from bed <->chair & commode at supv/touch A for OOB tasks Gait: increase gait on even surfaces using a RW x 50 feet at touch A w/o LOB Balance: improve std S/D to F+/F+ ROM/Strength: increase to 4+/5 on B LEs Fdc Goals Days: 20 Mobility: improve rolling to L<->R & supine <->sit at set up to I for EOB tasks. Transfers: improve transfers from bed <->chair & commode at set up to I for OOB tasks Gait: gait on even surfaces using a RW x 150 feet at set up A to mod I w/o LOB Balance: improve std S/D to G/G- ROM/Strength: increase to 5/5 on B LEs - PATIENT GOALS Patient/Family Goals: return to PLOF Goals Discussed with Patient/Family: Yes Rehabilitation Potential: good to fair Justification for Potential: good family support, able to participate - PLAN Suggested Treatment Plan: Bed Mobility Training, Therapeutic Activity, Gait Training, Neuro Re-education, Therapeutic Ex with HEP, Patient Education, Family Education - FREQUENCY AND DURATION PT: 6x/wk x hosp stay Expected Continuation of Care at Discharge: Determined on Progress
--- NOTE | 2018-10-27 15:54 | PT/OTEVAL ---
PT/OT OBJECTIVES - HISTORY Prescription: OT concult Diagnosis: S/P acute on chronic Respiratory failure,CHF, Anemia Precautions: falls, SOBs PMH: PMHx is significant but is not limited to pre-renal Azotemia, pulmonaryvascular congestion, Congestion, chest pain,Abdominal Hematoma, anemia, Anxiety, Cellulitis of Leg, Respiratory distress. Prior Level of Function: Assistance Required Other: Per family, pt was living with in a single level house with ramp. Pt was reported to be assisted with ADLs ,transfers and functional mobility. Pt uses FWW and shower chair at home. Pt also was reported of using continuous O2 supplement at 3 lit via NC. - COGNITION Mental Status: Alert, Oriented, Name, Place, Purpose, Agitated, Decreased Safety Awarenes Communication Status: Verbal, Hard of Hearing Ability to Follow Directions: 2 Step - PAIN Abdomen Pain Scale: No Pain - TRANSFERS Supine to Sit: Moderate Sit to Stand: Moderate Sit or Stand Pivot: Moderate - ADL'S Feeding: Setup Grooming: Moderate Upper Body ADL: Moderate Lower Body ADL: Moderate Toileting: Moderate - BALANCE Static Sitting: Good Standing: Fair Dynamic Sitting: Good Standing: Fair - NEUROMOTOR/SENSATION Zay. Upper Ext Sensation: WFL Coordination: WFL Proprioception: WFL - HAND DOMINANCE Extremity Function: Hand Dominance: Right - ROM Bilateral UE ROM: WFL Muscle Tone: WFL - STRENGTH Bilateral UE Strength Number: 3 Other comment: 3+/5 Grossly graded Bilateral LE Strength Number: 4 Other comment: 4-/5 PT/OT ASSESSMENT - OT Problem List: Decreased Mobility ADL's, Decreased Safety Aware, Decreased Dressing, Decreased UE Strength, Other Other, comment: decreased Functional Activity Tolerance - OT GOALS [employer] Operator Goals Days: 20 Mobility for ADL's: Pt will improve toilet t/f independently with AE Safety Awareness: Pt will demonstrate G safety awareness to decrease fall risk Dressing: Pt will perform UB/LB dressing independently with AE as needed. Upper Ext. Strength/Use: Pt will increase BUE strength to 5/5 to increase ADL,t/f and mobility Other: Pt will imporve F.A.T. to G to increase efficiency with ADL Short Term Goals Days: 10 Mobility for ADL's: Pt will improve toilet t/f min A with AE Safety Awareness: Pt will demonstrate F safety awareness to decrease fall risk Dressing: Pt will perform UB/LB dressing min A with AE as needed. Upper Ext. Strength/Use: Pt will increase BUE strength to 4+/5 to increase ADL,t/f and mobility Other: Pt will imporve F.A.T. to F+ to increase efficiency with ADL - PATIENT GOALS Patient/Family Goals: to return to PLOF Goals Discussed with Patient/Family: Yes Rehabilitation Potential: good Justification for Potential: G following commands, G family support - PLAN Suggested Treatment Plan: Therapeutic Activity, Self Care Training, Neuro Re- education, Therapeutic Ex with HEP, Home Management, Patient Education, Family Education - FREQUENCY AND DURATION OT: 5x a week x hospital stay Expected Continuation of Care at Discharge: Home
[2018-10-27] MEDS: HumuLIN R SC PRN (16:21)
[2018-10-27 17:02] VITALS: BMI 50.3
[2018-10-27] MEDS ORDERED: VISTARIL PO ONE (19:55)
[2018-10-27] MEDS: SNACK - Diabetic Appropriate PO SCH (19:56)
[2018-10-27] MEDS: VISTARIL PO PRN (19:57)
[2018-10-27] MEDS: COREG TAB 6.25 MG PO SCH (20:01)
[2018-10-27] MEDS: PULMICORT NEB TX 0.5 MG NEB SCH (20:43)
[2018-10-28] MEDS: DUONEB 0.5 MG/3 MG NEB SCH ×6 (00:35→21:00)
[2018-10-28] MEDS: VISTARIL PO PRN (03:16)
[2018-10-28] MEDS: ROBITUSSIN DM PO PRN ×3 (05:39→19:05)
[2018-10-28] MEDS ORDERED: LEXAPRO ONE (08:14)
[2018-10-28] MEDS: COREG TAB 6.25 MG PO SCH ×2 (08:19→21:03)
[2018-10-28] MEDS: LASIX PO SCH (08:19)
[2018-10-28] MEDS: NORCO 10/325 TAB PO SCH ×4 (08:20→21:27)
[2018-10-28] MEDS: LEXAPRO PO SCH (08:20)
[2018-10-28] MEDS: ZOFRAN TAB 4 MG SL PRN (08:21)
[2018-10-28] MEDS: PULMICORT NEB TX 0.5 MG NEB SCH ×2 (09:58→21:00)
[2018-10-28] MEDS: HumuLIN R SC PRN (11:49)
[2018-10-28] MEDS: SNACK - Diabetic Appropriate PO SCH (20:40)
[2018-10-29] MEDS: VISTARIL PO PRN ×2 (00:31→23:53)
[2018-10-29] MEDS: NORCO 10/325 TAB PO SCH ×5 (00:34→21:05)
[2018-10-29] MEDS: DUONEB 0.5 MG/3 MG NEB SCH ×6 (01:00→20:18)
[2018-10-29] MEDS ORDERED: LEXAPRO ONE (08:56)
[2018-10-29] MEDS: PULMICORT NEB TX 0.5 MG NEB SCH ×2 (09:21→20:18)
[2018-10-29] MEDS: COREG TAB 6.25 MG PO SCH ×2 (09:37→21:08)
[2018-10-29] MEDS: LEXAPRO PO SCH (09:37)
[2018-10-29] MEDS: LASIX PO SCH (09:37)
[2018-10-29] MEDS: JANUVIA PO SCH (09:41)
[2018-10-29] MEDS: ROBITUSSIN DM PO PRN ×3 (09:42→23:53)
[2018-10-29] MEDS ORDERED: INVOKANA PO SCH (10:00)
[2018-10-29] MEDS ORDERED: MILK OF MAGNESIA PO PRN (10:26)
[2018-10-29] MEDS ORDERED: SNACK - Diabetic Appropriate PO SCH (20:00)
[2018-10-29] MEDS: NULYTELY or GO-LYTELY PO SCH (21:08)
[2018-10-29] MEDS: SNACK - Diabetic Appropriate PO SCH (22:34)
[2018-10-30] MEDS: DUONEB 0.5 MG/3 MG NEB SCH ×6 (00:43→20:44)
[2018-10-30 05:10] LABS: BASOPHILS % (AUTO) 0.5 % (0.2-1.0); EOSINOPHILS # (AUTO) 0.4 x10^3/uL (0.0-0.2); EOSINOPHILS % (AUTO) 5.1 % (0.9-2.9); HEMATOCRIT 37.7 % (42.0-54.0); HEMOGLOBIN 11.9 g/dL (13.5-18.0); MEAN CORPUSCULAR HEMOGLOBIN 26.2 pg (27.0-34.0); MEAN CORPUSCULAR HGB CONC 31.7 g/dL (33.0-35.0); MEAN CORPUSCULAR VOLUME 82.5 fL (80.0-100.0); MEAN PLATELET VOLUME 8.1 fL (7.4-11.0); MONOCYTES % (AUTO) 11.7 % (0.0-13.0); NEUTROPHILS # (AUTO) 6.2 x10^3/uL (2.2-4.8); NEUTROPHILS % (AUTO) 70.7 % (42.0-75.0); PLATELET COUNT 243 X10^3/uL (150.0-450.0); RED BLOOD COUNT 4.56 X10^6/uL (4.7-6.0); RED CELL DISTRIBUTION WIDTH 18.6 % (11.6-16.5); WHITE BLOOD COUNT 8.7 X10^3/uL (3.6-10.0)
[2018-10-30 05:17] LABS: ALBUMIN 2.8 g/dL (3.4-5.0); CALCIUM 9.2 mg/dL (8.5-10.1); COR CA(FOR HYPOALB) 10.2 mg/dL (8.5-10.1); CREATININE 1.76 mg/dL (0.70-1.30); TOTAL PROTEIN 6.9 g/dL (6.4-8.2)
[2018-10-30 05:25] LABS: CARBON DIOXIDE 41.6 mmol/L (21-32)
[2018-10-30] MEDS: PULMICORT NEB TX 0.5 MG NEB SCH ×2 (08:51→20:45)
[2018-10-30] MEDS ORDERED: LEXAPRO ONE (08:54)
[2018-10-30] MEDS: NORCO 10/325 TAB PO SCH ×4 (09:00→21:06)
[2018-10-30] MEDS ORDERED: NS 1000 ML 1,000 ML ONE (09:49)
[2018-10-30] MEDS ORDERED: DIPRIVAN VIAL 20 ML ONE (09:56)
--- NOTE | 2018-10-30 10:23 | OR.GENERIC ---
Post-Op Note Generic - Post-Op Note Operative Report: EGD revealed erosive gastritis with small amount of coffee ground material in the stomach . no active bleeding now .Bx was obtained . colonoscopy couldn't be done because of poor prep . will give more prep and reschedule for colonoscopy in am ..
[2018-10-30] MEDS ORDERED: DULCOLAX TAB EC 5 MG PO ONE (10:29)
[2018-10-30] MEDS: JANUVIA PO SCH (11:13)
[2018-10-30] MEDS: LASIX PO SCH (11:13)
[2018-10-30] MEDS: COREG TAB 6.25 MG PO SCH ×2 (11:14→21:05)
[2018-10-30] MEDS: COLACE CAP 100 MG PO PRN (11:14)
[2018-10-30] MEDS: LEXAPRO PO SCH (11:15)
[2018-10-30] MEDS: CITROMA PO ONE (11:18)
[2018-10-30] MEDS ORDERED: STERILE WATER IRRIGATION IR ONE (15:04)
[2018-10-30] MEDS: HumuLIN R SC PRN (21:06)
[2018-10-30] MEDS: NULYTELY or GO-LYTELY PO SCH ×4 (21:07→21:52)
[2018-10-30] MEDS: SNACK - Diabetic Appropriate PO SCH (21:08)
[2018-10-30] MEDS: ROBITUSSIN DM PO PRN (21:21)
[2018-10-31] MEDS: NULYTELY or GO-LYTELY PO SCH (00:30)
[2018-10-31] MEDS: DUONEB 0.5 MG/3 MG NEB SCH ×6 (01:20→20:51)
[2018-10-31] MEDS ORDERED: DIPRIVAN VIAL 20 ML ONE (08:38)
[2018-10-31] MEDS ORDERED: XYLOCAINE-MPF 1% ONE (08:45)
[2018-10-31] MEDS ORDERED: XYLOCAINE 2 % (PLAIN) ONE (08:45)
[2018-10-31] MEDS: NORCO 10/325 TAB PO SCH ×4 (09:00→20:18)
[2018-10-31] MEDS: PULMICORT NEB TX 0.5 MG NEB SCH ×2 (09:18→20:52)
[2018-10-31] MEDS ORDERED: LEXAPRO ONE (10:54)
[2018-10-31] MEDS: LEXAPRO PO SCH (10:58)
[2018-10-31] MEDS: LASIX PO SCH (10:58)
[2018-10-31] MEDS: COREG TAB 6.25 MG PO SCH ×2 (10:58→20:15)
[2018-10-31] MEDS: JANUVIA PO SCH (10:58)
[2018-10-31] MEDS ORDERED: STERILE WATER IRRIGATION IR ONE (15:32)
[2018-10-31] MEDS: SNACK - Diabetic Appropriate PO SCH (20:14)
[2018-10-31] MEDS: HumuLIN R SC PRN (20:16)
[2018-11-01] MEDS: DUONEB 0.5 MG/3 MG NEB SCH ×6 (01:06→21:08)
[2018-11-01 05:11] LABS: BASOPHILS # (AUTO) 0.1 X10^3/uL (0.0-0.1); BASOPHILS % (AUTO) 0.9 % (0.2-1.0); EOSINOPHILS # (AUTO) 0.2 x10^3/uL (0.0-0.2); EOSINOPHILS % (AUTO) 2.6 % (0.9-2.9); HEMATOCRIT 38.1 % (42.0-54.0); HEMOGLOBIN 11.9 g/dL (13.5-18.0); LYMPHOCYTES # (AUTO) 0.7 X10^3/uL (1.3-2.9); LYMPHOCYTES % (AUTO) 9.5 % (21.0-51.0); MEAN CORPUSCULAR HEMOGLOBIN 25.7 pg (27.0-34.0); MEAN CORPUSCULAR HGB CONC 31.2 g/dL (33.0-35.0); MEAN CORPUSCULAR VOLUME 82.6 fL (80.0-100.0); MONOCYTES # (AUTO) 1.1 x10^3/uL (0.3-0.8); MONOCYTES % (AUTO) 14.9 % (0.0-13.0); NEUTROPHILS # (AUTO) 5.5 x10^3/uL (2.2-4.8); NEUTROPHILS % (AUTO) 72.1 % (42.0-75.0); PLATELET COUNT 197 X10^3/uL (150.0-450.0); RED BLOOD COUNT 4.61 X10^6/uL (4.7-6.0); RED CELL DISTRIBUTION WIDTH 19.2 % (11.6-16.5); WHITE BLOOD COUNT 7.6 X10^3/uL (3.6-10.0)
[2018-11-01 05:20] LABS: CALCIUM 8.8 mg/dL (8.5-10.1); CARBON DIOXIDE 37.3 mmol/L (21-32); CREATININE 1.62 mg/dL (0.70-1.30)
[2018-11-01] MEDS: HumuLIN R SC PRN ×2 (05:53→21:36)
[2018-11-01 05:56] LABS: HYPOCHROMASIA SLIGHT; PLATELET MORPHOLOGY COMMENT NORMAL (NORMAL)
[2018-11-01] MEDS ORDERED: LEXAPRO ONE (08:13)
[2018-11-01] MEDS: ROBITUSSIN DM PO PRN ×2 (08:49→17:40)
[2018-11-01] MEDS: COREG TAB 6.25 MG PO SCH ×2 (08:50→21:35)
[2018-11-01] MEDS: NORCO 10/325 TAB PO SCH ×4 (08:50→21:35)
[2018-11-01] MEDS: JANUVIA PO SCH (08:51)
[2018-11-01] MEDS: PULMICORT NEB TX 0.5 MG NEB SCH ×2 (08:51→21:08)
[2018-11-01] MEDS: LEXAPRO PO SCH (08:51)
[2018-11-01] MEDS: LASIX PO SCH (08:51)
[2018-11-01] MEDS: SNACK - Diabetic Appropriate PO SCH (21:00)
[2018-11-02] MEDS: DUONEB 0.5 MG/3 MG NEB SCH ×6 (01:02→21:01)
[2018-11-02 05:19] LABS: BASOPHILS % (AUTO) 0.4 % (0.2-1.0); EOSINOPHILS # (AUTO) 0.3 x10^3/uL (0.0-0.2); EOSINOPHILS % (AUTO) 2.8 % (0.9-2.9); HEMATOCRIT 36.8 % (42.0-54.0); HEMOGLOBIN 11.6 g/dL (13.5-18.0); LYMPHOCYTES # (AUTO) 0.8 X10^3/uL (1.3-2.9); LYMPHOCYTES % (AUTO) 7.3 % (21.0-51.0); MEAN CORPUSCULAR HEMOGLOBIN 26.2 pg (27.0-34.0); MEAN CORPUSCULAR HGB CONC 31.5 g/dL (33.0-35.0); MEAN CORPUSCULAR VOLUME 83.1 fL (80.0-100.0); MONOCYTES # (AUTO) 1.2 x10^3/uL (0.3-0.8); MONOCYTES % (AUTO) 10.8 % (0.0-13.0); NEUTROPHILS # (AUTO) 8.6 x10^3/uL (2.2-4.8); NEUTROPHILS % (AUTO) 78.7 % (42.0-75.0); PLATELET COUNT 204 X10^3/uL (150.0-450.0); RED BLOOD COUNT 4.43 X10^6/uL (4.7-6.0); WHITE BLOOD COUNT 10.9 X10^3/uL (3.6-10.0)
[2018-11-02 05:25] LABS: CALCIUM 8.7 mg/dL (8.5-10.1); CARBON DIOXIDE 35.9 mmol/L (21-32); CREATININE 1.84 mg/dL (0.70-1.30)
[2018-11-02] MEDS: HumuLIN R SC PRN ×3 (05:53→20:29)
[2018-11-02] MEDS: PULMICORT NEB TX 0.5 MG NEB SCH ×2 (08:16→21:01)
[2018-11-02] MEDS ORDERED: LEXAPRO ONE (08:20)
[2018-11-02] MEDS: NORCO 10/325 TAB PO SCH ×4 (08:40→20:29)
[2018-11-02] MEDS: LEXAPRO PO SCH (08:41)
[2018-11-02] MEDS: JANUVIA PO SCH (08:41)
[2018-11-02] MEDS: LASIX PO SCH (08:41)
[2018-11-02] MEDS: COREG TAB 6.25 MG PO SCH ×2 (08:41→20:29)
[2018-11-02] MEDS: ZOFRAN TAB 4 MG SL PRN (08:41)
[2018-11-02] MEDS: SNACK - Diabetic Appropriate PO SCH (20:30)
[2018-11-03] MEDS: DUONEB 0.5 MG/3 MG NEB SCH ×4 (00:58→12:03)
[2018-11-03] MEDS: HumuLIN R SC PRN ×2 (05:58→11:29)
[2018-11-03] MEDS ORDERED: LEXAPRO ONE (07:56)
[2018-11-03] MEDS: NORCO 10/325 TAB PO SCH ×2 (08:20→12:38)
[2018-11-03] MEDS: LASIX PO SCH (08:20)
[2018-11-03] MEDS: COLACE CAP 100 MG PO PRN (08:20)
[2018-11-03] MEDS: COREG TAB 6.25 MG PO SCH (08:21)
[2018-11-03] MEDS: JANUVIA PO SCH (08:21)
[2018-11-03] MEDS: LEXAPRO PO SCH (08:21)
[2018-11-03 08:56] VITALS: BP 129/57
[2018-11-03] MEDS: PULMICORT NEB TX 0.5 MG NEB SCH (09:03)
[2018-11-03 10:55] LABS: BASOPHILS # (AUTO) 0.1 X10^3/uL (0.0-0.1); BASOPHILS % (AUTO) 0.8 % (0.2-1.0); EOSINOPHILS # (AUTO) 0.2 x10^3/uL (0.0-0.2); EOSINOPHILS % (AUTO) 3.2 % (0.9-2.9); HEMATOCRIT 37.8 % (42.0-54.0); HEMOGLOBIN 11.9 g/dL (13.5-18.0); LYMPHOCYTES # (AUTO) 1.2 X10^3/uL (1.3-2.9); LYMPHOCYTES % (AUTO) 18.8 % (21.0-51.0); MEAN CORPUSCULAR HEMOGLOBIN 26.1 pg (27.0-34.0); MEAN CORPUSCULAR HGB CONC 31.5 g/dL (33.0-35.0); MEAN CORPUSCULAR VOLUME 82.9 fL (80.0-100.0); MEAN PLATELET VOLUME 8.2 fL (7.4-11.0); MONOCYTES # (AUTO) 1.4 x10^3/uL (0.3-0.8); MONOCYTES % (AUTO) 21.4 % (0.0-13.0); NEUTROPHILS # (AUTO) 3.7 x10^3/uL (2.2-4.8); NEUTROPHILS % (AUTO) 55.8 % (42.0-75.0); PLATELET COUNT 169 X10^3/uL (150.0-450.0); RED BLOOD COUNT 4.56 X10^6/uL (4.7-6.0); WHITE BLOOD COUNT 6.6 X10^3/uL (3.6-10.0)
[2018-11-03 11:09] LABS: ALBUMIN 2.9 g/dL (3.4-5.0); CALCIUM 9.2 mg/dL (8.5-10.1); CARBON DIOXIDE 35.9 mmol/L (21-32); COR CA(FOR HYPOALB) 10.1 mg/dL (8.5-10.1); CREATININE 2.36 mg/dL (0.70-1.30); TOTAL PROTEIN 7.1 g/dL (6.4-8.2)
[2018-11-03 11:28] LABS: BAND NEUTROPHILS % 1 % (0-10)
[2018-11-03 11:29] LABS: ANISOCYTOSIS SLIGHT; PLATELET MORPHOLOGY COMMENT NORMAL (NORMAL)
--- NOTE | 2018-11-03 12:10 | RAD ---
AP chest Indication: Shortness of breath Comparison: 10/27/2018 Findings: There is improved aeration of the right lower lobe with persistent patchy consolidative process within the left lower lobe. Scarring is noted within the right mid lung. The upper lung zones are clear. Heart size is enlarged, unchanged. Previous median sternotomy is again noted. No pneumothorax. There is blunting of left costophrenic sulcus suggesting small effusion . No acute osseous abnormality. Impression: 1.Improved aeration of the right lung base with persistent patchy consolidative process within the left lower lobe likely representing slowly resolving interstitial edema or infiltrates. Continue two view radiographic follow-up is recommended. 2. Cardiomegaly post CABG. 3. Suspected small left-sided pleural effusion. Reported By:
== END 2018-11-03 15:15 | disposition home health service (06) | DRG 949 ==
LOC: ICU 11:00 → MED/SURG 10-28 06:05
PROVIDERS: ADMIT Obstetrics & Gynecology Obstetrics; ATTEND Obstetrics & Gynecology Obstetrics
DX: J96.20 Acute and chronic respiratory failure, unspecified whether with hypoxia or hypercapnia; K92.1 Melena; I50.9 Heart failure, unspecified; D64.89 Other specified anemias; K52.89 Other specified noninfective gastroenteritis and colitis; K21.9 Gastro-esophageal reflux disease without esophagitis; K64.8 Other hemorrhoids; R26.89 Other abnormalities of gait and mobility; D12.6 Benign neoplasm of colon, unspecified; J44.9 Chronic obstructive pulmonary disease, unspecified; K63.5 Polyp of colon; K62.1 Rectal polyp; K29.00 Acute gastritis without bleeding; R06.02 Shortness of breath; Z51.89 Encounter for other specified aftercare
CPT/HCPCS: 36415; 71010; 71045; 80048; 80053; 82378; 83735; 84132; 85025; 88305; 88341; 94640; 97110; 97116; 97162; 97166; 97530; 97535; 99100; A4216; A4217; Q0177; J1815; J2704; J7030; J7620; J7626; S0181

== ENCOUNTER 2018-12-10 10:56 | Inpatient (IN) ==
[2018-12-10] MEDS ORDERED: DUONEB 0.5 MG/3 MG ONE (11:11)
[2018-12-10] MEDS ORDERED: DUONEB 0.5 MG/3 MG NEB ONE (11:17)
[2018-12-10 11:37] LABS: BASOPHILS # (AUTO) 0.1 X10^3/uL (0.0-0.1); BASOPHILS % (AUTO) 0.5 % (0.2-1.0); EOSINOPHILS # (AUTO) 0.3 x10^3/uL (0.0-0.2); EOSINOPHILS % (AUTO) 2.9 % (0.9-2.9); HEMATOCRIT 36.7 % (42.0-54.0); HEMOGLOBIN 11.4 g/dL (13.5-18.0); LYMPHOCYTES # (AUTO) 1.4 X10^3/uL (1.3-2.9); LYMPHOCYTES % (AUTO) 12.1 % (21.0-51.0); MEAN CORPUSCULAR HEMOGLOBIN 26.6 pg (27.0-34.0); MEAN CORPUSCULAR HGB CONC 30.9 g/dL (33.0-35.0); MEAN CORPUSCULAR VOLUME 85.9 fL (80.0-100.0); MEAN PLATELET VOLUME 8.4 fL (7.4-11.0); MONOCYTES # (AUTO) 1.3 x10^3/uL (0.3-0.8); MONOCYTES % (AUTO) 10.6 % (0.0-13.0); NEUTROPHILS # (AUTO) 8.8 x10^3/uL (2.2-4.8); NEUTROPHILS % (AUTO) 73.9 % (42.0-75.0); PLATELET COUNT 238 X10^3/uL (150.0-450.0); RED BLOOD COUNT 4.27 X10^6/uL (4.7-6.0); RED CELL DISTRIBUTION WIDTH 19.9 % (11.6-16.5); WHITE BLOOD COUNT 11.9 X10^3/uL (3.6-10.0)
[2018-12-10 11:48] LABS: ABG BASE EXCESS 16.8 mmol/L (-2.0-2.0)
[2018-12-10 11:49] LABS: ABG HCO3 47.7 mmol/L (22-26)
[2018-12-10 11:56] LABS: ALANINE AMINOTRANSFERASE 17 Units/L (12-78); ALBUMIN 2.9 g/dL (3.4-5.0); ALKALINE PHOSPHATASE 97 Units/L (46-116); ASPARTATE AMINO TRANSFERASE 13 Units/L (15-37); BLOOD UREA NITROGEN 22 mg/dL (7-18); CALCIUM 8.7 mg/dL (8.5-10.1); CHLORIDE 103 mmol/L (98-107); CKMB % 3.9 % (<4); COR CA(FOR HYPOALB) 9.6 mg/dL (8.5-10.1); COR NA(FOR HYPERGLY) 149 mmol/L (136-145); CREATINE KINASE 26 Units/L (39-308); CREATINE KINASE MB < 1.0 ng/mL (0-4.0); CREATININE 1.85 mg/dL (0.70-1.30); MAGNESIUM 2.1 mg/dL (1.7-2.9); SODIUM 145 mmol/L (136-145); TOTAL PROTEIN 7.2 g/dL (6.4-8.2); TROPONIN I 0.02 ng/mL (0-1.5); eGFR NON BLACK RACES 38 (>60)
[2018-12-10 12:01] LABS: B-TYPE NATRIURETIC PEPTIDE 293 pg/mL (0-79)
--- NOTE | 2018-12-10 12:06 | RAD ---
HISTORY: Shortness of breath. Prior history of hypertension, COPD and CHF. Study: Single-view chest Comparison: 12/05/2018. Findings: There are again changes of CABG with median sternotomy sutures and metallic markers indicating coronary artery bypass grafts. There is again cardiomegaly with pulmonary vascular congestion. Increased interstitial markings are present bilaterally, indicating CHF with increasing density present in the right lower lobe which may represent edema or infiltrate. Right-sided pleural effusion may be present. Markings in the left lung base are about the same as on the prior study. IMPRESSION: Cardiomegaly with changes of CABG. There is pulmonary vascular congestion with signs of CHF and right basilar edema, infiltrate or pleural fluid. Reported By:
[2018-12-10] MEDS ORDERED: LASIX IVP ONE ×2 (12:43→13:01)
[2018-12-10] MEDS ORDERED: ROCEPHIN VIAL 1 GRAM IVP ONE (12:44)
[2018-12-10] MEDS ORDERED: ROCEPHIN VIAL 1 GRAM ONE (13:01)
[2018-12-10 13:26] LABS: BILIRUBIN,URINE NEGATIVE (NEGATIVE); BLOOD/HEMOGLOBIN,URINE NEGATIVE (NEGATIVE); GLUCOSE, URINE NEGATIVE (NEGATIVE); KETONES,URINE NEGATIVE (NEGATIVE); LEUKOCYTE ESTERASE ,URINE NEGATIVE (NEGATIVE); NITRITES,URINE NEGATIVE (NEGATIVE); PROTEIN,URINE 2+ (NEGATIVE); UROBILINOGEN,URINE NORMAL (NORMAL)
--- NOTE | 2018-12-10 13:28 | DR.SOBA ---
HPI Time Seen Time Seen by Provider: 12/10/18 11:52 Primary Care Physician Primary Care Physician: HATCH Complaints Chief Complaint:: EMS STATES PT IS HAVING SEVERE DIFFICULTY BREATHING. EMS NOTED PT TO BE ON HIS HOME TRILOGY MACHINE WITHA SPO2 NOTED TO BE OF 65%. PT TRANSFERRED FROM EMS STRETCHER TO ED STRETCHER WITH SPO2 NOTED TO BE 42% ON SIMPLE FACEMASK AT 10LPM. PT'S STATES HE HAS BEEN LIKE THIS SINCE LAST NIGHT. NOTED RALES AND RHONCHI BILATERALLY AND THROUGHOUT. PT SLOWLY REBOUNDING NOTED TO BE 75-85%. Source History Provided: Patient Mode of Arrival Mode of Arrival: EMS Timing Onset of Chief Complaint: 12/09/18 PMH PMH Past Medical History: Yes Past Medical History: CHF, COPD, Dyslipidemia, GERD, Hypertension, OR and Sleep Apnea Past Surgical History: Yes Family History History of Family Medical Conditions: Yes Family Medical History: Diabetes Mellitus, Cancer, OR and Hypertension Social History Does any household member use tobacco: No Alcohol Use: None Do you use any recreational Drugs:: No Lives With: Family Lives Where: Home infectious screening In the last 2 months have you had wt loss of >10#?: NO Have you had fever, night sweats or hemotysis?: No Have you traveled outside the country in the last 6 months?: No Isolation: Standard PE Vital Signs Vitals: Temperature 98.2 F Pulse Rate [Right Radial] 65 Pulse Rate 75 Respiratory Rate 30 Blood Pressure [Right Arm] 136/64 Blood Pressure [Left Arm] 112/55 Blood Pressure 128/67 O2 Sat by Pulse Oximetry 92 General Limitations: No Limitations General Appearance: Alert, Anxious and In Distress Head Head Exam: Normal Inspection, Atraumatic and Normocephalic Eyes Eye exam: Normal Appearance, PERRL and EOMI ENT ENT Exam: Normal Exam, Normal Oropharynx, Normal External Ear Exam, Mucous Membranes Moist and TM's Normal Bilaterally Neck Neck Exam: Normal Inspection and Full ROM Chest Chest Inspection: Normal Inspection and Symmetric Chest Wall Rise Respiratory Respiratory Exam: Normal Lung Sounds Bilat and Accessory Muscle Use Respiratory Exam: Bilateral: Clear to Auscultation Cardiovascular Cardiovascular Exam: Regular Rate and Normal Rhythm Abdominal Exam Abdominal Exam: Normal Inspection, Normal Bowel Sounds and Soft Extremities Extremities Exam: Normal Inspection and Edema Back Back Exam: Normal Inspection and Full ROM Neurologic Neurological Exam: Alert, Oriented X3 and CN II-XII Intact Psychiatric Psychiatric Exam: Normal Affect and Normal Mood Skin Skin Exam: Warm, Dry, Intact and Normal Color ROR Labs Reviewed Result Diagrams: 12/10/18 11:05 12/10/18 11:05 Laboratory: 12/10/18 11:17 Sputum - Expectorated Sputum - Final WBC 11.9 X10^3/uL (3.6-10.0) H 12/10/18 11:05 RBC 4.27 X10^6/uL (4.7-6.0) L 12/10/18 11:05 Hgb 11.4 g/dL (13.5-18.0) L 12/10/18 11:05 Hct 36.7 % (42.0-54.0) L 12/10/18 11:05 MCV 85.9 fL (80.0-100.0) 12/10/18 11:05 MCH 26.6 pg (27.0-34.0) L 12/10/18 11:05 MCHC 30.9 g/dL (33.0-35.0) L 12/10/18 11:05 RDW 19.9 % (11.6-16.5) H 12/10/18 11:05 Plt Count 238 X10^3/uL (150.0-450.0) 12/10/18 11:05 MPV 8.4 fL (7.4-11.0) 12/10/18 11:05 Neut % (Auto) 73.9 % (42.0-75.0) 12/10/18 11:05 Lymph % (Auto) 12.1 % (21.0-51.0) L 12/10/18 11:05 Summers % (Auto) 10.6 % (0.0-13.0) 12/10/18 11:05 Eos % (Auto) 2.9 % (0.9-2.9) 12/10/18 11:05 Baso % (Auto) 0.5 % (0.2-1.0) 12/10/18 11:05 Neut # (Auto) 8.8 x10^3/uL (2.2-4.8) H 12/10/18 11:05 Lymph # (Auto) 1.4 X10^3/uL (1.3-2.9) 12/10/18 11:05 Summers # (Auto) 1.3 x10^3/uL (0.3-0.8) H 12/10/18 11:05 Eos # (Auto) 0.3 x10^3/uL (0.0-0.2) H 12/10/18 11:05 Baso # (Auto) 0.1 X10^3/uL (0.0-0.1) 12/10/18 11:05 Absolute Nucleated RBC 0.0 /100WBC 12/10/18 11:05 APTT 33.8 SECONDS (22.9-36.5) 12/10/18 11:05 PTT Comment - 12/10/18 11:05 D-Dimer 546 ng/mL (0-400) H* 12/10/18 11:06 Sample Site Rb 12/10/18 14:46 ABG pH 7.330 (7.35-7.45) L 12/10/18 14:46 ABG pCO2 95.0 mmHg (35.0-45.0) H* 12/10/18 14:46 ABG pO2 58.0 mmHg (80.0-100.0) L 12/10/18 14:46 ABG HCO3 50.1 mmol/L (22-26) H* 12/10/18 14:46 ABG O2 Saturation 88.0 % (90-100) L 12/10/18 14:46 ABG Base Excess 19.4 mmol/L (-2.0-2.0) H 12/10/18 14:46 Herson Test Na 12/10/18 14:46 A-a Gradient 251.0 mmHg 12/10/18 14:46 FiO2 60.0 12/10/18 14:46 Blood Gas Comments Pt [email or web address] 12/10/18 14:46 Sodium 145 mmol/L (136-145) 12/10/18 11:05 Corrected Sodium 149 mmol/L (136-145) H 12/10/18 11:05 Potassium 3.8 mmol/L (3.5-5.1) 12/10/18 11:05 Chloride 103 mmol/L (98-107) 12/10/18 11:05 Carbon Dioxide 37.0 mmol/L (21-32) H 12/10/18 11:05 BUN 22 mg/dL (7-18) H 12/10/18 11:05 Creatinine 1.85 mg/dL (0.70-1.30) H 12/10/18 11:05 Est GFR (MDRD) Af Amer 46 (>60) L 12/10/18 11:05 Est GFR (MDRD) Non-Af 38 (>60) L 12/10/18 11:05 Glucose 261 mg/dL (65-99) H 12/10/18 11:05 POC Glucose (mg/dL) 155 mg/dL (65-99) H 12/11/18 05:19 Lactic Acid 0.3 mmol/L (0.4-2.0) L 12/10/18 13:00 Calcium 8.7 mg/dL (8.5-10.1) 12/10/18 11:05 Corrected Calcium 9.6 mg/dL (8.5-10.1) 12/10/18 11:05 Magnesium 2.1 mg/dL (1.7-2.9) 12/10/18 11:05 Total Bilirubin 0.30 mg/dL (0.2-1.0) 12/10/18 11:05 AST 13 Units/L (15-37) L 12/10/18 11:05 ALT 17 Units/L (12-78) 12/10/18 11:05 Alkaline Phosphatase 97 Units/L (46-116) 12/10/18 11:05 Creatine Kinase 26 Units/L (39-308) L 12/10/18 11:05 CK-MB (CK-2) < 1.0 ng/mL (0-4.0) 12/10/18 11:05 CK/CKMB % Calc 3.9 % (<4) 12/10/18 11:05 Troponin I 0.02 ng/mL (0-1.5) 12/10/18 11:05 B-Natriuretic Peptide 293 pg/mL (0-79) H 12/10/18 11:05 Total Protein 7.2 g/dL (6.4-8.2) 12/10/18 11:05 Albumin 2.9 g/dL (3.4-5.0) L 12/10/18 11:05 Globulin 4.3 g/dL (2.5-4.5) 12/10/18 11:05 Albumin/Globulin Ratio 0.7 Ratio (1.1-2.1) L 12/10/18 11:05 Specimen Type Catherized urine 12/10/18 13:11 Urine Color Yellow (YELLOW) 12/10/18 13:11 Urine Appearance Clear (CLEAR) 12/10/18 13:11 Urine pH 5.0 (5.0 - 8.0) 12/10/18 13:11 Ur Specific [place] 1.020 (1.000-1.030) 12/10/18 13:11 Urine Protein 2+ (NEGATIVE) 12/10/18 13:11 Urine Glucose (UA) Negative (NEGATIVE) 12/10/18 13:11 Urine Ketones Negative (NEGATIVE) 12/10/18 13:11 Urine Occult Blood Negative (NEGATIVE) 12/10/18 13:11 Urine Nitrite Negative (NEGATIVE) 12/10/18 13:11 Urine Bilirubin Negative (NEGATIVE) 12/10/18 13:11 Urine Urobilinogen Normal (NORMAL) 12/10/18 13:11 Ur Leukocyte Esterase Negative (NEGATIVE) 12/10/18 13:11 Urine RBC None seen /HPF (NONE SEEN) 12/10/18 13:11 Urine WBC 0-2 /HPF (NONE SEEN) 12/10/18 13:11 Ur Squamous Epith Cells Rare /HPF (NEGATIVE) 12/10/18 13:11 Amorphous Sediment Trace /HPF (NEGATIVE) 12/10/18 13:11 Urine Bacteria Negative /HPF (NEGATIVE) 12/10/18 13:11 Hyaline Casts Rare /LPF (NEGATIVE) 12/10/18 13:11 Ur Culture Indicated? No/not indicated 12/10/18 13:11 Diagnosis Discharge Problem: Acute exacerbation of chronic obstructive pulmonary disease, Congestive heart failure
[2018-12-10 13:39] LABS: APPEARANCE,URINE CLEAR (CLEAR); COLOR,URINE YELLOW (YELLOW)
[2018-12-10 13:52] LABS: BACTERIA,URINE NEGATIVE /HPF (NEGATIVE); RBC,URINE NONE SEEN /HPF (NONE SEEN); SQUAMOUS EPITHELIAL CELL,UR RARE /HPF (NEGATIVE)
[2018-12-10 13:53] LABS: AMORPHOUS SEDIMENT,UR TRACE /HPF (NEGATIVE); HYALINE CASTS, URINE RARE /LPF (NEGATIVE)
[2018-12-10] MEDS ORDERED: ZOFRAN INJ 4 MG VIAL ONE (14:01)
[2018-12-10 14:47] LABS: ABG BASE EXCESS 19.4 mmol/L (-2.0-2.0)
[2018-12-10 14:48] LABS: ABG HCO3 50.1 mmol/L (22-26)
[2018-12-10 16:09] VITALS: BMI 53.6
[2018-12-10] MEDS: DUONEB 0.5 MG/3 MG NEB SCH ×2 (16:29→20:15)
[2018-12-10] MEDS: PULMICORT NEB TX 0.5 MG NEB SCH (20:15)
[2018-12-10] MEDS ORDERED: NS 250 ML IV 250 ML ONE (21:08)
[2018-12-10] MEDS: ZITHROMAX INJ 500 MG VIAL 500 MG in NS 250 ML IV 250 ML IV SCH (21:22)
[2018-12-10] MEDS: LASIX IVP SCH (21:23)
[2018-12-10] MEDS: NS 250 ML IV 250 ML IV SCH (21:36)
[2018-12-10] MEDS ORDERED: VALIUM ONE (22:06)
[2018-12-10] MEDS: VALIUM PO PRN (22:10)
[2018-12-11] MEDS: DUONEB 0.5 MG/3 MG NEB SCH ×7 (01:40→20:07)
[2018-12-11] MEDS ORDERED: PHENERGAN INJ 25 MG IM PRN (06:07)
[2018-12-11] MEDS ORDERED: NORCO 5/325 MG TAB ONE (06:08)
[2018-12-11] MEDS: NORCO 5/325 MG TAB PO PRN ×3 (06:11→21:57)
[2018-12-11 06:19] LABS: BASOPHILS # (AUTO) 0.1 X10^3/uL (0.0-0.1); BASOPHILS % (AUTO) 0.6 % (0.2-1.0); EOSINOPHILS # (AUTO) 0.3 x10^3/uL (0.0-0.2); EOSINOPHILS % (AUTO) 3.3 % (0.9-2.9); HEMOGLOBIN 10.7 g/dL (13.5-18.0); LYMPHOCYTES # (AUTO) 0.9 X10^3/uL (1.3-2.9); LYMPHOCYTES % (AUTO) 9.4 % (21.0-51.0); MEAN CORPUSCULAR HEMOGLOBIN 26.7 pg (27.0-34.0); MEAN CORPUSCULAR HGB CONC 31.5 g/dL (33.0-35.0); MEAN CORPUSCULAR VOLUME 84.8 fL (80.0-100.0); MEAN PLATELET VOLUME 8.1 fL (7.4-11.0); MONOCYTES # (AUTO) 1.1 x10^3/uL (0.3-0.8); NEUTROPHILS # (AUTO) 7.1 x10^3/uL (2.2-4.8); NEUTROPHILS % (AUTO) 74.7 % (42.0-75.0); PLATELET COUNT 229 X10^3/uL (150.0-450.0); RED CELL DISTRIBUTION WIDTH 19.4 % (11.6-16.5); WHITE BLOOD COUNT 9.6 X10^3/uL (3.6-10.0)
[2018-12-11 06:27] LABS: ALBUMIN 2.5 g/dL (3.4-5.0); CALCIUM 8.7 mg/dL (8.5-10.1); COR CA(FOR HYPOALB) 9.9 mg/dL (8.5-10.1); CREATININE 1.49 mg/dL (0.70-1.30); TOTAL PROTEIN 6.5 g/dL (6.4-8.2)
[2018-12-11 06:41] LABS: CARBON DIOXIDE 44.4 mmol/L (21-32)
--- NOTE | 2018-12-11 06:44 | RAD ---
HISTORY: Shortness of breath Study: Chest AP portable Comparison: 12/10/2018 Findings: Patient is status post median sternotomy and CABG. The heart remains enlarged. No congestive heart failure is noted. There is a right pleural effusion obscuring the lung markings in the right middle and right lower lobes. There are now some patchy infiltrates in the left lower lobe. Findings are likely superimposed on COPD. The bony thorax is unremarkable. IMPRESSION: Continued cardiomegaly but without congestive heart failure on today's examination. Right pleural effusion obscuring the lung markings in the right middle and right lower lobes, unchanged Patchy left lower lobe infiltrate now visualized Reported By:
[2018-12-11] MEDS: PULMICORT NEB TX 0.5 MG NEB SCH ×2 (08:17→20:07)
[2018-12-11] MEDS: ROCEPHIN VIAL 1 GRAM IVP SCH (09:33)
[2018-12-11] MEDS: LASIX IVP SCH ×2 (09:33→20:41)
[2018-12-11] MEDS: ZITHROMAX INJ 500 MG VIAL 500 MG in NS 250 ML IV 250 ML IV SCH (09:34)
[2018-12-11] MEDS: NS 250 ML IV 250 ML IV SCH (11:59)
[2018-12-11] MEDS: LOVENOX INJ 30 MG SYR SC SCH (20:41)
[2018-12-11] MEDS ORDERED: K-RIDER 10 MEQ/NS 100 ML 10 MEQ/100 ML BAG IV PRN (20:50)
[2018-12-11] MEDS ORDERED: POTASSIUM CHL 40 MEQ/NS 0.45% 500 ML IV PRN (20:50)
[2018-12-11] MEDS ORDERED: POTASSIUM CHL 60 MEQ/NS 0.45% 500 ML IV PRN (20:50)
[2018-12-11] MEDS ORDERED: KLOR-CON PO PRN (20:50)
[2018-12-11] MEDS: NYSTATIN OINT TOP SCH (21:36)
[2018-12-11] MEDS: K-DUR TAB 20 MEQ PO PRN (21:41)
[2018-12-11] MEDS: VALIUM PO PRN (21:48)
[2018-12-12] MEDS: DUONEB 0.5 MG/3 MG NEB SCH ×7 (00:16→20:38)
[2018-12-12] MEDS: NORCO 5/325 MG TAB PO PRN ×2 (03:57→12:40)
[2018-12-12] MEDS: NS 250 ML IV 250 ML IV SCH ×2 (04:02→22:25)
[2018-12-12 06:10] LABS: ALANINE AMINOTRANSFERASE 13 Units/L (12-78); ALBUMIN 2.5 g/dL (3.4-5.0); ALKALINE PHOSPHATASE 81 Units/L (46-116); ASPARTATE AMINO TRANSFERASE 11 Units/L (15-37); BLOOD UREA NITROGEN 17 mg/dL (7-18); CHLORIDE 99 mmol/L (98-107); COR CA(FOR HYPOALB) 10.2 mg/dL (8.5-10.1); COR NA(FOR HYPERGLY) 147 mmol/L (136-145); CREATININE 1.42 mg/dL (0.70-1.30); SODIUM 146 mmol/L (136-145); TOTAL PROTEIN 6.8 g/dL (6.4-8.2); eGFR NON BLACK RACES 52 (>60)
[2018-12-12 06:12] LABS: BASOPHILS % (AUTO) 0.4 % (0.2-1.0); EOSINOPHILS # (AUTO) 0.4 x10^3/uL (0.0-0.2); EOSINOPHILS % (AUTO) 4.4 % (0.9-2.9); HEMATOCRIT 35.2 % (42.0-54.0); HEMOGLOBIN 11.3 g/dL (13.5-18.0); LYMPHOCYTES # (AUTO) 0.8 X10^3/uL (1.3-2.9); LYMPHOCYTES % (AUTO) 8.5 % (21.0-51.0); MEAN CORPUSCULAR VOLUME 84.5 fL (80.0-100.0); MEAN PLATELET VOLUME 8.2 fL (7.4-11.0); MONOCYTES # (AUTO) 1.1 x10^3/uL (0.3-0.8); MONOCYTES % (AUTO) 11.3 % (0.0-13.0); NEUTROPHILS % (AUTO) 75.4 % (42.0-75.0); PLATELET COUNT 254 X10^3/uL (150.0-450.0); RED BLOOD COUNT 4.17 X10^6/uL (4.7-6.0); RED CELL DISTRIBUTION WIDTH 19.6 % (11.6-16.5); WHITE BLOOD COUNT 9.4 X10^3/uL (3.6-10.0)
[2018-12-12] MEDS: VALIUM PO PRN ×2 (06:18→23:49)
[2018-12-12] MEDS: K-DUR TAB 20 MEQ PO PRN (06:18)
[2018-12-12] MEDS: PULMICORT NEB TX 0.5 MG NEB SCH ×3 (09:00→20:38)
[2018-12-12] MEDS: LOVENOX INJ 30 MG SYR SC SCH ×2 (09:45→20:46)
[2018-12-12] MEDS: NYSTATIN OINT TOP SCH ×2 (09:45→20:45)
[2018-12-12] MEDS: LASIX IVP SCH ×2 (09:45→20:49)
[2018-12-12] MEDS: ROCEPHIN VIAL 1 GRAM IVP SCH (09:50)
[2018-12-12] MEDS ORDERED: NS 50 ML IV 50 ML ONE (09:55)
[2018-12-12] MEDS: ZITHROMAX INJ 500 MG VIAL 500 MG in NS 250 ML IV 250 ML IV SCH (09:55)
[2018-12-12] MEDS ORDERED: BUTT CREAM (COMPOUND) TOP PRN (23:54)
[2018-12-12] MEDS ORDERED: BUTT CREAM (COMPOUND) ONE (23:58)
[2018-12-13] MEDS: DUONEB 0.5 MG/3 MG NEB SCH ×6 (01:30→20:45)
[2018-12-13] MEDS: NS 250 ML IV 250 ML IV SCH ×2 (02:31→14:28)
[2018-12-13 05:55] LABS: ALANINE AMINOTRANSFERASE 9 Units/L (12-78); ALBUMIN 2.6 g/dL (3.4-5.0); ALKALINE PHOSPHATASE 81 Units/L (46-116); ASPARTATE AMINO TRANSFERASE 12 Units/L (15-37); BLOOD UREA NITROGEN 18 mg/dL (7-18); CALCIUM 9.2 mg/dL (8.5-10.1); CHLORIDE 100 mmol/L (98-107); COR CA(FOR HYPOALB) 10.3 mg/dL (8.5-10.1); COR NA(FOR HYPERGLY) 146 mmol/L (136-145); CREATININE 1.42 mg/dL (0.70-1.30); SODIUM 145 mmol/L (136-145); TOTAL PROTEIN 6.9 g/dL (6.4-8.2); eGFR NON BLACK RACES 52 (>60)
[2018-12-13 05:58] LABS: CARBON DIOXIDE 40.1 mmol/L (21-32)
[2018-12-13 06:11] LABS: BASOPHILS # (AUTO) 0.1 X10^3/uL (0.0-0.1); BASOPHILS % (AUTO) 0.7 % (0.2-1.0); EOSINOPHILS # (AUTO) 0.4 x10^3/uL (0.0-0.2); EOSINOPHILS % (AUTO) 4.7 % (0.9-2.9); HEMATOCRIT 36.8 % (42.0-54.0); HEMOGLOBIN 11.8 g/dL (13.5-18.0); LYMPHOCYTES % (AUTO) 11.2 % (21.0-51.0); MEAN CORPUSCULAR HGB CONC 32.2 g/dL (33.0-35.0); MEAN CORPUSCULAR VOLUME 83.9 fL (80.0-100.0); MONOCYTES # (AUTO) 1.2 x10^3/uL (0.3-0.8); MONOCYTES % (AUTO) 13.1 % (0.0-13.0); NEUTROPHILS # (AUTO) 6.2 x10^3/uL (2.2-4.8); NEUTROPHILS % (AUTO) 70.3 % (42.0-75.0); PLATELET COUNT 246 X10^3/uL (150.0-450.0); RED BLOOD COUNT 4.38 X10^6/uL (4.7-6.0); RED CELL DISTRIBUTION WIDTH 19.4 % (11.6-16.5); WHITE BLOOD COUNT 8.8 X10^3/uL (3.6-10.0)
--- NOTE | 2018-12-13 06:19 | RAD ---
HISTORY: Shortness of breath Study: Chest AP portable Comparison: 12/11/2018 Findings: The patient is status post median sternotomy and CABG. The heart remains enlarged. No definite congestive heart failure is noted. Right pleural effusion is again identified unchanged from the prior examination. It continues to obscure the right middle and right lower lobe. The upper lobes are clear. Patchy infiltrate is again identified in the left lower lobe. The bony thorax is unremarkable. IMPRESSION: No significant change from the prior examination Reported By:
[2018-12-13] MEDS: LASIX IVP SCH ×2 (08:34→21:22)
[2018-12-13] MEDS: LOVENOX INJ 30 MG SYR SC SCH ×2 (08:34→21:22)
[2018-12-13] MEDS: NYSTATIN OINT TOP SCH ×2 (08:35→21:23)
[2018-12-13] MEDS: PULMICORT NEB TX 0.5 MG NEB SCH ×2 (08:35→20:45)
[2018-12-13] MEDS: POTASSIUM CHLORIDE LIQ 20 MEQ UDC PO PRN (08:35)
[2018-12-13] MEDS: ROCEPHIN VIAL 1 GRAM IVP SCH (08:35)
[2018-12-13] MEDS: ZITHROMAX INJ 500 MG VIAL 500 MG in NS 250 ML IV 250 ML IV SCH (08:35)
[2018-12-13] MEDS: ALBUMIN HUMAN 25%- 100 ML 100 ML IV SCH (10:37)
[2018-12-13] MEDS: MIRALAX POWDER (1 DOSE 17 G) PO SCH (10:38)
[2018-12-13] MEDS: COLACE CAP 100 MG PO SCH ×2 (10:38→21:22)
[2018-12-13] MEDS: HumuLIN R SUBCUT PRN (12:00)
[2018-12-13] MEDS: AMBIEN PO PRN (21:23)
[2018-12-13] MEDS: MICRO K EXTEN CAP 10 MEQ PO PRN (21:24)
[2018-12-14] MEDS: DUONEB 0.5 MG/3 MG NEB SCH ×6 (01:15→20:10)
[2018-12-14] MEDS: NS 250 ML IV 250 ML IV SCH ×3 (05:05→21:31)
[2018-12-14 06:13] LABS: BASOPHILS % (AUTO) 0.5 % (0.2-1.0); EOSINOPHILS # (AUTO) 0.4 x10^3/uL (0.0-0.2); EOSINOPHILS % (AUTO) 4.3 % (0.9-2.9); HEMATOCRIT 36.6 % (42.0-54.0); HEMOGLOBIN 11.7 g/dL (13.5-18.0); LYMPHOCYTES # (AUTO) 0.9 X10^3/uL (1.3-2.9); LYMPHOCYTES % (AUTO) 11.1 % (21.0-51.0); MEAN CORPUSCULAR HEMOGLOBIN 26.7 pg (27.0-34.0); MEAN CORPUSCULAR VOLUME 83.4 fL (80.0-100.0); MONOCYTES # (AUTO) 1.2 x10^3/uL (0.3-0.8); MONOCYTES % (AUTO) 14.7 % (0.0-13.0); NEUTROPHILS # (AUTO) 5.8 x10^3/uL (2.2-4.8); NEUTROPHILS % (AUTO) 69.4 % (42.0-75.0); PLATELET COUNT 245 X10^3/uL (150.0-450.0); RED BLOOD COUNT 4.38 X10^6/uL (4.7-6.0); RED CELL DISTRIBUTION WIDTH 19.4 % (11.6-16.5); WHITE BLOOD COUNT 8.4 X10^3/uL (3.6-10.0)
[2018-12-14 06:39] LABS: ALANINE AMINOTRANSFERASE 12 Units/L (12-78); ALBUMIN 2.8 g/dL (3.4-5.0); ALKALINE PHOSPHATASE 78 Units/L (46-116); ASPARTATE AMINO TRANSFERASE 13 Units/L (15-37); BLOOD UREA NITROGEN 19 mg/dL (7-18); CALCIUM 9.1 mg/dL (8.5-10.1); CARBON DIOXIDE 38.1 mmol/L (21-32); CHLORIDE 101 mmol/L (98-107); COR CA(FOR HYPOALB) 10.1 mg/dL (8.5-10.1); COR NA(FOR HYPERGLY) 146 mmol/L (136-145); CREATININE 1.41 mg/dL (0.70-1.30); SODIUM 145 mmol/L (136-145); TOTAL PROTEIN 6.9 g/dL (6.4-8.2); eGFR NON BLACK RACES 52 (>60)
[2018-12-14] MEDS: ALBUMIN HUMAN 25%- 100 ML 100 ML IV SCH (08:01)
[2018-12-14] MEDS: COLACE CAP 100 MG PO SCH ×2 (08:02→21:07)
[2018-12-14] MEDS: ZITHROMAX INJ 500 MG VIAL 500 MG in NS 250 ML IV 250 ML IV SCH (08:02)
[2018-12-14] MEDS: LASIX IVP SCH ×2 (08:02→21:06)
[2018-12-14] MEDS: MIRALAX POWDER (1 DOSE 17 G) PO SCH (08:03)
[2018-12-14] MEDS: NYSTATIN OINT TOP SCH ×2 (08:03→21:07)
[2018-12-14] MEDS: ROCEPHIN VIAL 1 GRAM IVP SCH (08:03)
[2018-12-14] MEDS: POTASSIUM CHLORIDE LIQ 20 MEQ UDC PO PRN (08:03)
[2018-12-14] MEDS: NORCO 5/325 MG TAB PO PRN (08:04)
[2018-12-14] MEDS: LOVENOX INJ 30 MG SYR SC SCH ×2 (08:05→21:06)
[2018-12-14] MEDS: PULMICORT NEB TX 0.5 MG NEB SCH ×2 (08:15→20:10)
[2018-12-14] MEDS: CIPRO IV 400 MG PREMIX* 400 MG/200 ML IV.SOLN. IV SCH ×2 (10:23→21:06)
[2018-12-14] MEDS: HumuLIN R SUBCUT PRN (11:25)
[2018-12-14] MEDS ORDERED: NS 100 ML IV 100 ML ONE (12:38)
[2018-12-14] MEDS: ZOSYN VIAL 3.375 GRAMS IV SCH ×2 (13:10→22:35)
[2018-12-14] MEDS ORDERED: NS 100 ML IV + SPIKE MINIBAG* 100 ML ONE (20:23)
[2018-12-14] MEDS: AMBIEN PO PRN (21:07)
[2018-12-15] MEDS: DUONEB 0.5 MG/3 MG NEB SCH ×4 (00:36→12:26)
[2018-12-15] MEDS ORDERED: NS 100 ML IV + SPIKE MINIBAG* 100 ML ONE (05:36)
[2018-12-15] MEDS: NS 250 ML IV 250 ML IV SCH (05:57)
[2018-12-15] MEDS: ZOSYN VIAL 3.375 GRAMS IV SCH (05:58)
[2018-12-15 05:59] LABS: BASOPHILS % (AUTO) 0.4 % (0.2-1.0); EOSINOPHILS # (AUTO) 0.4 x10^3/uL (0.0-0.2); EOSINOPHILS % (AUTO) 4.4 % (0.9-2.9); HEMATOCRIT 37.5 % (42.0-54.0); HEMOGLOBIN 11.7 g/dL (13.5-18.0); LYMPHOCYTES # (AUTO) 0.9 X10^3/uL (1.3-2.9); LYMPHOCYTES % (AUTO) 9.7 % (21.0-51.0); MEAN CORPUSCULAR HEMOGLOBIN 26.4 pg (27.0-34.0); MEAN CORPUSCULAR HGB CONC 31.3 g/dL (33.0-35.0); MEAN CORPUSCULAR VOLUME 84.4 fL (80.0-100.0); MEAN PLATELET VOLUME 7.7 fL (7.4-11.0); MONOCYTES # (AUTO) 1.2 x10^3/uL (0.3-0.8); MONOCYTES % (AUTO) 13.1 % (0.0-13.0); NEUTROPHILS # (AUTO) 6.8 x10^3/uL (2.2-4.8); NEUTROPHILS % (AUTO) 72.4 % (42.0-75.0); PLATELET COUNT 260 X10^3/uL (150.0-450.0); RED BLOOD COUNT 4.45 X10^6/uL (4.7-6.0); RED CELL DISTRIBUTION WIDTH 19.2 % (11.6-16.5); WHITE BLOOD COUNT 9.4 X10^3/uL (3.6-10.0)
[2018-12-15 06:13] LABS: ALBUMIN 3.2 g/dL (3.4-5.0); CALCIUM 9.3 mg/dL (8.5-10.1); CARBON DIOXIDE 38.7 mmol/L (21-32); COR CA(FOR HYPOALB) 9.9 mg/dL (8.5-10.1); CREATININE 1.73 mg/dL (0.70-1.30); TOTAL PROTEIN 7.5 g/dL (6.4-8.2)
--- NOTE | 2018-12-15 06:57 | RAD ---
History: Shortness of breath Study: Portable AP chest Comparison: December 13 Findings: There is mild cardiomegaly status post CABG. There is blunting of the costophrenic angles, right larger than left. There is mild vascular congestion. There is chronic interstitial lung markings. There is subsegmental atelectasis at the left lung base. Impression: Unchanged mild to moderate right pleural effusion and small left pleural effusion. Unchanged cardiomegaly. Subsegmental atelectasis at the left lung base. Reported By:
[2018-12-15] MEDS: MIRALAX POWDER (1 DOSE 17 G) PO SCH (08:56)
[2018-12-15] MEDS: COLACE CAP 100 MG PO SCH (08:56)
[2018-12-15] MEDS: PULMICORT NEB TX 0.5 MG NEB SCH (09:47)
[2018-12-15] MEDS: CIPRO IV 400 MG PREMIX* 400 MG/200 ML IV.SOLN. IV SCH (09:56)
[2018-12-15] MEDS: ALBUMIN HUMAN 25%- 100 ML 100 ML IV SCH (09:56)
[2018-12-15] MEDS: LASIX IVP SCH (09:59)
[2018-12-15] MEDS: LOVENOX INJ 30 MG SYR SC SCH (10:00)
[2018-12-15] MEDS: MICRO K EXTEN CAP 10 MEQ PO PRN (10:05)
[2018-12-15] MEDS: NYSTATIN OINT TOP SCH (10:07)
[2018-12-15 13:14] VITALS: BP 108/60
== END 2018-12-15 14:05 | disposition home health service (06) | DRG 177 ==
LOC: ER 10:56 → ICU 14:45
PROVIDERS: ADMIT Internal Medicine; ATTEND Obstetrics & Gynecology Obstetrics
DX: R94.31 Abnormal electrocardiogram [ECG] [EKG]; R26.89 Other abnormalities of gait and mobility; J20.8 Acute bronchitis due to other specified organisms; R94.4 Abnormal results of kidney function studies; Z79.01 Long term (current) use of anticoagulants; J96.20 Acute and chronic respiratory failure, unspecified whether with hypoxia or hypercapnia; J15.1 Pneumonia due to Pseudomonas; I50.9 Heart failure, unspecified; J44.1 Chronic obstructive pulmonary disease with (acute) exacerbation; E11.65 Type 2 diabetes mellitus with hyperglycemia; J90 Pleural effusion, not elsewhere classified
CPT/HCPCS: 36415; 36600; 51702; 71010; 71045; 80053; 81001; 82550; 82553; 82803; 83605; 83735; 83880; 84132; 84484; 85025; 85378; 85730; 87070; 87077; 87186; 87205; 93005; 94640; 96365; 96374; 96375; 97110; 97162; 97166; 97530; 97535; 99221; 99285; A4216; A4222; P9047; J0456; J0696; J0744; J1650; J1815; J1940; J2405; J2543; J7050; J7620; J7626